=== PATIENT | female | born 1985 | race Caucasian/White ===

== ENCOUNTER 2016-11-16 23:50 | Inpatient (IN) | payer OTHER, SELFPAY ==
[~2016-11-16] VITALS: Ht 165.1 cm; Wt 66.4 kg
--- NOTE | ~2016-11-16 | DS ---
PATIENT'S NAME: THUY BERMEO [facility] AGE: 31 Y [address] ROOM: [address] [address] LOCATION: CU ADMIT DATE: 11/17/2016 Discharge Summary DISCHARGE DATE: FAMILY PHYSICIAN: Physician, Unknown ATTENDING PHYSICIAN: Jaime Fabian ADDENDUM: To discharge summary initially created by Dr. Basurto. PRINCIPAL DIAGNOSES: 1. Severe anoxic brain injury leading to brain . 2. . 3. Cardiac arrest. 4. Drug overdose. 5. History of substance abuse. BRIEF HOSPITAL COURSE: This is a 31-year-old female with a known history of substance abuse, admitted to the hospital after a cardiac arrest and undergoing resuscitative efforts with return of spontaneous circulation. The patient was admitted, intubated, and sedated. Throughout her stay, unfortunately did not have significant recovery and was found to have severe anoxic brain injury. The patient during her stay has had a clinical followup with Neurology, Critical Care team, and myself. Unfortunately, did not show a meaningful recovery or recovery potential. The patient today during my evaluation was intubated and unresponsive without any sedation. The patient subsequently had a brain exam by Dr. Ness, trust accounts supervisor, and was pronounced brain at 02:33 p.m. on 11/20/2016. The patient is a registered organ donor and [place] [facility] team is working closely with the patient's family going forward. DISCHARGE DIAGNOSIS: secondary to severe anoxic brain injury and brain . Greater than 30 minutes were spent in discharge planning and facilitating. MD ANGELIKA URIOSTEGUI/patricia /[id number] d: 11/21/16 1730 t: 12/11/16 0927, DISCHARGE SUMMARY
--- NOTE | ~2016-11-16 | CON ---
PATIENT'S NAME: THUY BERMEO [facility] AGE: 31 Y [address] ROOM: [address] [place] [id number] LOCATION: GNTU ADMIT DATE: 11/17/2016 Consultation DISCHARGE DATE: 11/23/2016 FAMILY PHYSICIAN: Physician, Unknown ATTENDING PHYSICIAN: Jaime Fabian DATE OF CONSULTATION: 11/19/2016 REFERRING PHYSICIAN: Christiano Hester MD LOCATION: ICU room [facility]. REFERRING PROVIDER: Dr. Basurto. CHIEF COMPLAINT: Palliative care referral for goals of care discussion and family support. HISTORY OF PRESENT ILLNESS: The patient is a 31-year-old female who has an extensive history of drug abuse and is a documented loperamide abuser. She was transferred to [facility] from [place] [facility] after being found unresponsive in a friend's home. It is felt that she was down 15-20 minutes before EMS arrival. On EMS arrival, the patient did briefly have a pulse but became pulseless and a CPR was initiated. She did have return of spontaneous circulation, it was lost upon arrival to the ER and CPR was initiated again. The patient is currently in the intensive care unit and is intubated and unresponsive. She is not on any current sedation and she has lost multiple reflexes. MRI of the brain on November 18 reveals suspicion for global hypoxic ischemic brain injury. Given the patient's poor prognosis, Palliative Care has been consulted to assist with goals of care and family support. At the current time, there is no family at bedside and there has not been any yet. PREVIOUS OPERATIONS: Unobtainable due to the patient's current condition and no family at bedside. PAST MEDICAL HISTORY: History of previous loperamide overdose in the last year, history of polysubstance abuse. The patient had recently been released from group home. She does have 2 children, ages 9 and 5. Other history unobtainable as the patient is unresponsive and no family at bedside. SOCIAL HISTORY: The patient is . Had recently filed for divorce. Has 2 children, ages 9 and 5. She has a history of polysubstance abuse. Recently spent some time PATIENT'S NAME: THUY BERMEO [facility] AGE: 31 Y [address] ROOM: [id number] [place], [place] [address] LOCATION: [facility] ADMIT DATE: 11/17/2016 Consultation DISCHARGE DATE: 11/23/2016 FAMILY PHYSICIAN: Physician, Unknown ATTENDING PHYSICIAN: Jaime Fabian incarcerated. FAMILY HISTORY: The patient has a mother who is alive and well in [place]. Other history is unobtainable at this time. REVIEW OF SYSTEMS: As per HPI. Unable to obtain full review of systems due to the patient's condition. PHYSICAL EXAMINATION: VITAL SIGNS: Blood pressure 170/116, heart rate 112, temperature 98.8, respirations 17, O2 sats 40% on the ventilator. GENERAL: Reveals a young adult, lying in intensive care unit intubated. She is unresponsive. Does not have sedation on board. Does not appear to be in any acute distress. HEENT: Normocephalic, atraumatic. Pupils are equal but very sluggish. ET tube is intact. Tongue, mucous membranes are moist and pink. Dentition is adequate. CARDIOVASCULAR: Heart tones regular rate and rhythm. She is tachycardic. I am not able to note a murmur. RESPIRATORY: Respirations are regular and nonlabored. Lung sounds are clear to auscultation bilaterally. I am not able to note rales, rhonchi, or wheezes. GASTROINTESTINAL: Abdomen is soft, nondistended. Bowel sounds hypoactive. GENITOURINARY: Fernandez catheter is intact with adequate amounts of yellow urine. MUSCULOSKELETAL: No significant joint deformities. Peripheral pulses strong and equal bilaterally. No clubbing or cyanosis. She does have trace bilateral lower extremity edema. SKIN: Warm and dry. No unusual lesions or rashes. NEUROLOGICAL: Unresponsive. Does not follow commands. Does not open her eyes. Her pupils are equal but sluggish. Does withdraw some in the lower extremities. IMPRESSION AND PLAN: 1. Altered mental status with hypoxic encephalopathy. 2. Respiratory failure, currently on the ventilator. 3. Code status. The patient is a full code at this time. No advanced directive on the chart. I spoke with the patient's Amrik via the phone, introduced the role of Palliative Care for support in the intensive care unit. Discussed with him this difficult situation. I reviewed with him the family situation. Provided education to him on how to prepare their 5 years old for coming to see his mom in the intensive care unit. Amrik reports that he is in [place] picking up PATIENT'S NAME: THUY BERMEO [facility] AGE: 31 Y [address] ROOM: [id number] [place], [place] [address] LOCATION: [facility] ADMIT DATE: 11/17/2016 Consultation DISCHARGE DATE: 11/23/2016 FAMILY PHYSICIAN: Physician, Unknown ATTENDING PHYSICIAN: Jaime Fabian the patient's family and plans to return to the hospital later tonight or early in the morning. He tells me "we all know where this is headed." He seems to have a fair understanding of the poor prognosis. Given the fact that he is still her , I believe that he is primary decision maker and he agrees with this but does wish to have her mother involved as well. I did place a phone call to try and update her, I did have to leave a message, and I have not heard back from her at this time. I updated nursing on my findings as well as Debbie with Neurology. We will follow for continued patient and family support and we will assist as needed in coordinating cares with staff and family. Total of 30 minutes was spent, greater than 50% of this time was spent providing education and support for the . Thank you for allowing me to assist the patient's family. DUKE COKER NP FOR MD LEONIDAS STOREY/patricia /[id number] d: 11/26/16 1823 t: 12/05/16 1414, CONSULTATION REPORT
--- NOTE | ~2016-11-16 | CON ---
PATIENT'S NAME: THUY BERMEO [facility] AGE: 31 Y [address] ROOM: [place] [address] LOCATION: GICU ADMIT DATE: 11/17/2016 Consultation DISCHARGE DATE: FAMILY PHYSICIAN: PHYSICIAN, UNKNOWN ATTENDING PHYSICIAN: MEGAN FLORES REFERRING PHYSICIAN: Christiano Hester MD REVIEW OF THE RECORD: The patient is a 31-year-old, from [place]. Apparently, she has drug abuse issues. She was transferred here after being brought to the emergency room in [place] with cardiac arrest. Her downtime apparently may have been prolonged. She is now intubated on mechanical ventilation. Her mental status is comatose. PAST MEDICAL HISTORY: Please refer to the admission history and physical exam. FAMILY HISTORY: Unobtainable. SOCIAL HISTORY: Unobtainable. REVIEW OF SYSTEMS: Unobtainable. PHYSICAL EXAMINATION: GENERAL: Unresponsive, endotracheal tube in place. ENT: Otherwise unremarkable. NECK: Normal. CHEST: Normal. LUNGS: Clear. HEART: Regular. ABDOMEN: Obese. EXTREMITIES: No clubbing or edema. ASSESSMENT: Cardiac arrest, cause unclear. PLAN: Continue to assist in ICU and Pulmonary management. NANETTE ROMERO MD PATIENT'S NAME: THUY BERMEO [facility] AGE: 31 Y [address] ROOM: [place] [address] LOCATION: GICU ADMIT DATE: 11/17/2016 Consultation DISCHARGE DATE: FAMILY PHYSICIAN: PHYSICIAN, UNKNOWN ATTENDING PHYSICIAN: MEGAN FLORES DEC/modl /[id number] d: 11/17/16 0838 t: 11/20/16 1455, CONSULTATION REPORT
--- NOTE | ~2016-11-16 | OR ---
PATIENT'S NAME: THUY BERMEO [facility] AGE: 31 Y [address] ROOM: [place] [address] LOCATION: GICU ADMIT DATE: 11/17/2016 OR/Procedure Report DISCHARGE DATE: FAMILY PHYSICIAN: PHYSICIAN, UNKNOWN ATTENDING PHYSICIAN: MEGAN FLORES SURGEON: Joey Russell MD RESEARCH INVESTIGATOR: DATE OF PROCEDURE: 11/17/2016 PROCEDURES PERFORMED: 1. Right subclavian central venous catheter. 2. Right radial arterial line. INDICATION FOR PROCEDURE: The patient is in shock, on multiple pressors with limited IV access. DESCRIPTION OF PROCEDURE: The patient was lying supine in the ICU in slight Trendelenburg position. The right chest and neck were prepped with chlorhexidine 2% x2. Sterile drape was applied over top. Maximal sterile barriers were worn at all times including sterile gloves, gown, hat, and mask. With a single stick, the introducer needle was inserted in the right chest for the subclavian approach. After the first pass, bright dark nonpulsatile blood was found on return. Wire was threaded easily and the skin nicked and dilated. A four lumen, 20 cm catheter was placed over the wire without complications and the wire removed. All ports withdrew blood and flushed easily. It was sutured into place and a sterile dressing applied on top. A chest x-ray was ordered for placement. The right arm was extended out at about 90 degrees. The radial artery was easily palpated. The right wrist and arm were prepped with chlorhexidine 2%. Maximal sterile barriers were worn. After a single stick with a 20-gauge Arrow catheter, bright red pulsatile blood was found on return and the catheter was placed easily using a Seldinger technique. Once the needle and wire were removed, it was attached to the transducer tubing and secured into place. COMPLICATIONS: None. ESTIMATED BLOOD LOSS: None. JOEY RUSSELL MD PATIENT'S NAME: THUY BERMEO [facility] AGE: 31 Y [address] ROOM: [place] [id number] LOCATION: [facility] ADMIT DATE: 11/17/2016 OR/Procedure Report DISCHARGE DATE: FAMILY PHYSICIAN: PHYSICIAN, ABBY ATTENDING PHYSICIAN: MEGAN FLORES/judyl /[id number] d: 11/17/161339 t: 11/22/16 [facility], OPERATIVE SUMMARY
--- NOTE | ~2016-11-16 | CON ---
PATIENT'S NAME: THUY BERMEO [facility] AGE: 31 Y [address] ROOM: [place] [address] LOCATION: [facility] ADMIT DATE: 11/17/2016 Consultation DISCHARGE DATE: FAMILY PHYSICIAN: PHYSICIAN, UNKNOWN ATTENDING PHYSICIAN: MEGAN FLORES DATE OF CONSULTATION: 11/17/2016 REFERRING PHYSICIAN: Aleksandr Moody MD CARDIOLOGY CONSULTATION REASON FOR CARDIOLOGY CONSULTATION: Cardiac arrest. HISTORY OF PRESENT ILLNESS: This is a 31-year-old female, with a history of drug use and documented loperamide abuse. She is transferred to [facility] from [place], [place] with cardiac arrest. She has a previous history of ventricular tachycardia in 2016. During that time, she has had a heart catheterization which showed clean coronary arteries, but an ejection fraction of 45%. The patient left that hospital stay against medical advice and was not able to be fully treated for her cardiomyopathy. Most likely, this admission is due to similar ventricular tachycardia but also of note, her loperamide levels are currently pending. At the time of this consult, she is sedated and ventilated while on the targeted temperature management protocol post cardiac arrest. PAST MEDICAL HISTORY: Unable to obtain due to patient's current status. PAST SURGICAL HISTORY: Unable to obtain due to patient's current status. FAMILY HISTORY: Unable to obtain due to patient's current status. SOCIAL HISTORY: Unable to obtain due to patient's current status. CURRENT MEDICATIONS: Please see MAR for full details. MEDICATION ALLERGIES: Unable to be assessed at this time. PATIENT'S NAME: THUY BERMEO [facility] AGE: 31 Y [address] ROOM: [address] [address] LOCATION: [facility] ADMIT DATE: 11/17/2016 Consultation DISCHARGE DATE: FAMILY PHYSICIAN: PHYSICIAN, UNKNOWN ATTENDING PHYSICIAN: MEGAN FLORES REVIEW OF SYSTEMS: Unable to be evaluated at this time due to the patient's status. PHYSICAL EXAMINATION: VITAL SIGNS: Temperature 94.6, pulse 81, respirations 14, blood pressure is 79/57, and O2 saturation 100% on 40% FiO2. The patient weighs 70.3 kg. SKIN: Cool, but pink and dry. EYES: Sclerae clear. No xanthelasmas. ENT: Oral mucosa is pink and moist. No jugular venous distention or carotid bruits. CHEST: Respirations are even and driven by the ventilator. LUNGS: Clear to auscultation. HEART: Regular rate and rhythm. Normal S1 and S2. Does have the presence of an S4. Her potline monitor shows occasional junctional rhythm. She also has prolonged QRS and QT on her EKG. ABDOMEN: Soft. MUSCULOSKELETAL: Due to patient's status unable to fully evaluate the neuromuscular strength and coordination. EXTREMITIES: Peripheral pulses palpable. No clubbing, cyanosis, or edema. PSYCHIATRIC: The patient is currently unconscious, sedated, and intubated. Of note, she is having myoclonic jerks intermittently. IMPRESSION AND PLAN: Per Dr. Moody: 1. Status post cardiac arrest. 2. Known cardiomyopathy. 3. Minimally elevated cardiac enzymes. 4. Acute hypoxic respiratory failure. 5. Documented loperamide abuse. 6. History of ventricular tachycardia. 7. Chronic systolic congestive heart failure. At this point, we will continue supportive therapy with the hypothermia protocol. Her echocardiogram is currently pending and we will monitor that to fully evaluate ejection fraction as well as look for wall-motion or valvular abnormalities. Her chest x-ray shows mild cardiomegaly. We will continue to monitor, evaluate, and treat as appropriate. Thank you for this consult. Thank you for allowing [facility] to interact in the care of this patient. DIXON NORMAN APRN FOR ALEKSANDR MOODY MD PATIENT'S NAME: THUY BERMEO [facility] AGE: 31 Y [address] ROOM: [address] [address] LOCATION: [facility] ADMIT DATE: 11/17/2016 Consultation DISCHARGE DATE: FAMILY PHYSICIAN: PHYSICIAN, UNKNOWN ATTENDING PHYSICIAN: MEGAN FLORES/patricia /[id number] d: 11/17/16 1427 t: 11/29/16 1551, CONSULTATION REPORT
--- NOTE | ~2016-11-16 | NDGEN ---
PATIENT'S NAME: THUY FLOWER [facility] AGE: 31 Y [address] ROOM: [place] [address] LOCATION: [facility] ADMIT DATE: 11/17/2016 Neurodiagnostics DISCHARGE DATE: FAMILY PHYSICIAN: PHYSICIAN, UNKNOWN ATTENDING PHYSICIAN: MEGAN FLORES PROCEDURE: ELECTROENCEPHALOGRAM DATE OF PROCEDURE: 11/19/2016 CLINICAL DIAGNOSIS: TIME: 10:05 a.m. INDICATION: Ms. Flower is a 31-year-old female who presents with a cardiac arrest after a likely toxic overdose of drugs. She is unresponsive. She had been treated for potential seizures on her presentation though at the time of the EEG, no obvious seizures were seen. There was no movement of her limbs, and the patient is again unresponsive and not on any sedative medications. DESCRIPTION: General background rhythm shows repetitive rhythmic collateralized, mostly triphasic but sometimes biphasic spike wave patterns that are regularly recurring on a time period of every 1-second interval. This rhythmic lateralized rhythm does appear to be present in both hemispheres and does not change throughout the whole EEG recording. There are no signs of interburst spike wave patterns or any seizures intermittent within this background pattern. Photic stimulation did not change the overall periodic lateralized epileptiform discharges or (PLED's). IMPRESSION: There are rhythmic biphasic and triphasic spike wave patterns that are seen on regular intervals in the bi-hemispheres consistent with periodic lateralized epileptiform discharges though this type of rhythm disturbance is nonspecific and can occur multiple etiologies, it would be consistent with the patient having a cardiac arrest with anoxia to the brain. The findings on MRI are consistent with global anoxia to the bi-hemispheres and subcortical regions of the brain as well. The patient continues to be treated for a possibility of seizures in the background, although no clinical seizures were seen presently. PLED's (periodic lateralized epileptiform discharge) pattern seen in the acute setting of presentation. In general, votes a poor prognosis based upon cortical brain injury associated with anoxia as well as the concurrent brain imaging and the patient's neurologic exam. PATIENT'S NAME: THUY FLOWER [facility] AGE: 31 Y [address] ROOM: [place] [address] LOCATION: GICU ADMIT DATE: 11/17/2016 Neurodiagnostics DISCHARGE DATE: FAMILY PHYSICIAN: PHYSICIAN, UNKNOWN ATTENDING PHYSICIAN: MEGAN FLORES MD GLORIA HUGGINS/patricia /[id number] dtt: 11/20/16 1609 , PIPER PRO dtd: 11/19/16 1730
--- NOTE | ~2016-11-16 | HP ---
PATIENT'S NAME: THUY BERMEO [facility] AGE: 31 Y [address] ROOM: [address] [address] LOCATION: [facility] ADMIT DATE: 11/17/2016 History & Physical DISCHARGE DATE: FAMILY PHYSICIAN: PHYSICIAN, UNKNOWN ATTENDING PHYSICIAN: MEGAN FLORES DATE OF SERVICE: CHIEF COMPLAINT: Cardiac arrest. HISTORY OF PRESENT ILLNESS: Unable to obtain history from the patient, however, history as obtained from the transferring physician from the emergency room at [place]. He reported that the EMS team was called by the patient's friend, and on arrival of the EMS team, the patient was found unresponsive. Friend reports that the patient likely may have been down for about 12 to 20 minutes prior to the EMS being called. On arrival of the EMS team there, she had a pulse briefly. Then, the patient became pulseless after that and CPR was started, during which time, the patient got a total of 2 epinephrine and 1 lidocaine for short episode of ventricular tachycardia, and the patient was defibrillated following the ventricular tachycardia. ROSC was obtained briefly, and thereafter, ROSC was lost. On arrival of the patient to the emergency room at [place], the patient was pulseless, was thought to be in PEA. CPR again was done for around 10 minutes, after which, pulse was obtained, and the patient at that point was started on epinephrine drip with a systolic blood pressure getting into the 120, prior to commencing the epinephrine, systolic blood pressure was in the 50s. The patient also was started on amiodarone drip, and because they did not have an manager resort coverage in the ICU, the patient was subsequently transferred to [facility] for higher level of care. Further history as obtained from the records, the patient was admitted to the same facility in April of last year, during which, she again presented with unresponsiveness, however, without cardiac arrest. Then, we thought she had presented with seizure and had loperamide overdose. She was managed with supportive care, had a Cardiology consultation, Neurology and Psych evaluation. On presentation at that time, she had a prolonged QTc, and she was put on sodium bicarb as well as magnesium and also amiodarone, which was taken care of in the ICU. Had a cardiac cath done with an ejection fraction of 45% but no significant coronary artery disease. Also as per records, it was recommended that the patient needed a LifeVest by Cardiology, but she refused, and she left AMA during that time. Reason indicated was that she was not being given her pain medication as she wanted, also was not being given Valium and Ativan as frequently as she wanted, so she left AMA. Also, nurse reports that the patient was discharged today from [facility] [place]. Reason for being in [facility] is unknown. Also on arrival to the emergency room PATIENT'S NAME: THUY BERMEO [facility] AGE: 31 Y [address] ROOM: [address] [address] LOCATION: [facility]ICU ADMIT DATE: 11/17/2016 History & Physical DISCHARGE DATE: FAMILY PHYSICIAN: PHYSICIAN, UNKNOWN ATTENDING PHYSICIAN: MEGAN FLORES at [place], the patient's temperature was also found to be 93, and they had not initiated hypothermia protocol. Subsequently, the patient was airlifted here to [facility]. En route, the patient received a total of 7.5 mg of Versed. REVIEW OF SYSTEMS: Unable to obtain as the patient is currently unresponsive. PAST MEDICAL HISTORY: As per old records includes loperamide overdose last year, history of polysubstance abuse. SOCIAL HISTORY: Unable to obtain as the patient is currently unresponsive. FAMILY HISTORY: Unable to obtain as well as the patient is currently unresponsive. SURGICAL HISTORY: Unable to obtain as well as patient is currently unresponsive. PHYSICAL EXAMINATION: VITAL SIGNS: On arrival to the ICU, temperature was 93.5, blood pressure was 95/67 on epinephrine drip, respiratory rate was 13, pulse was 90, oxygen saturation was 95% on FiO2 of 50. GENERAL: Revealed a young female with intermittent spontaneous opening of the eye and twitching of bilateral feet, which appeared to be anoxic brain injury movement, had multiple episodes. The patient was not responsive to nail pressure nor was she responsive to deep sternal rub. She was also not responsive to deep pinprick. HEENT: Pupils were equal bilaterally, sluggish about 2 mm. Ears: There is no obvious drainage or discharge. Pharynx: ET tube in place. CARDIOVASCULAR SYSTEM: Normal S1 and S2. Regular rate and rhythm. CHEST: Clear to auscultation bilaterally. ABDOMEN: Soft, nondistended. No area of tenderness. No palpable organomegaly. EXTREMITIES: There is no joint swelling or erythema or tenderness. SKIN: She has earrings over the right eyebrow. LABORATORY DATA: EKG which was done at the referral center, QTc is reported as 380. Blood work was done. The urine drug screen positive for cannabinoids and amphetamines. CPK 612, CK-MB 3.8, troponin 0.03. UA; pH 6.0, protein 3+, glucose 2+, hemoglobin 1+. ABG; pH of 7.14, pCO2 of 38, bicarb 13 on arterial, O2 PATIENT'S NAME: THUY BERMEO [facility] AGE: 31 Y [address] ROOM: [place] [address] LOCATION: [facility] ADMIT DATE: 11/17/2016 History & Physical DISCHARGE DATE: FAMILY PHYSICIAN: PHYSICIAN, UNKNOWN ATTENDING PHYSICIAN: MEGAN FLORES saturation 94% FiO2 30% ventilator. Salicylate less than 4. Acetaminophen less than 10. Magnesium 3.0. Lipase 35. Lactic acid 7.5. D-dimer 742. Sodium 135, potassium 3.5, chloride 102, bicarb 20, anion gap 16.5, creatinine 1.6, calcium 8.1, albumin 4.0. Total protein 6.8. CBC; WBC 16.8, H and H are 14.4 and 45, platelet is 252. ASSESSMENT AND PLAN: This is a 31-year-old female with history of substance abuse, who comes in with cardiac arrest. 1. Cardiac arrest, unknown etiology, present on admission. May be secondary to possibly another episode of loperamide overdose, though the patient's acute QTc on the EKG done at the referral center appears to be within a normal value. May also be due to acute arrhythmia from meth overdose and cannabis. If the CT head, which has just been done, does not show any signs of anoxic brain injury, we may likely start the patient on some sodium bicarb drip. I did discuss with Dr. Hester, who is firefighter marine on-call, and he thinks that there is no indication for urgent cardiac cath right now given patient's history of substance abuse with loperamide, and also, the patient has just had a left cardiac cath done last year with normal coronaries. The patient's temperature right now is 93.5. We will initiate the hypothermia protocol to maintain the patient's temperature for 24 hours at this level, and we will follow up on the results of the CT head. We will continue the patient on the amiodarone drip, and we will wean the patient off the epinephrine and start the patient on Levophed to keep MAP greater than 65. 2. Acute hypoxic respiratory failure, present on admission, secondary to cardiac arrest. The patient is on ventilator. Management is going to be per Dr. Avendano. 3. Acute kidney injury, present on admission secondary to cardiac arrest, prerenal. We will hydrate the patient with normal saline. 4. Seizure-like activity, present on admission. This may be secondary to anoxic brain injury. We have had a CT head done. We will follow up on the results. We will also get a Neurology consult in the morning. We will load the patient with Dilantin right now and continue thereafter on a maintenance dose. 5. Polysubstance abuse, present on admission. We will likely start the patient on sodium bicarb drip if there are no signs of brain swelling or anoxic brain injury. 6. Systolic heart failure. We will get an echocardiogram to evaluate the ejection fraction currently. This was the EF on the cardiac cath, which was done last year. Prognosis is pretty poor. Critical care time spent on this patient is approximately 70 minutes. PATIENT'S NAME: THUY BERMEO [facility] AGE: 31 Y [address] ROOM: [place] [address] LOCATION: [facility] ADMIT DATE: 11/17/2016 History & Physical DISCHARGE DATE: FAMILY PHYSICIAN: PHYSICIAN, UNKNOWN ATTENDING PHYSICIAN: MEGAN FLORES MD LETICIA NICE/patricia /[id number] D: [id number] T: [id number] HISTORY & PHYSICAL
--- NOTE | ~2016-11-16 | DS ---
PATIENT'S NAME: THUY BERMEO [facility] AGE: 31 Y [address] ROOM: [address] [address] LOCATION: [facility] ADMIT DATE: 11/17/2016 Discharge Summary DISCHARGE DATE: FAMILY PHYSICIAN: Physician, Unknown ATTENDING PHYSICIAN: Jaime Fabian INTERIM DISCHARGE SUMMARY This is a interim discharge summary given that I will not be here next week because we changed shift; therefore, this summary will be an interim discharge summary and any updates or any changes on the actual day of discharge, as well as the discharge medication will be dictated by the actual hospitalist working on the actual day of discharge. DATE OF DISCHARGE: To be determined. DISCHARGE DIAGNOSES: 1. Cardiac arrest secondary to methamphetamine, cannabinoid, and benzodiazepine use/abuse and possibly also from loperamide overdose (currently the loperamide serum level is pending). 2. Shock secondary to cardiac arrest from pulseless ventricular tachycardia followed by PEA secondary to cardiac arrest. 3. QRS and QTc prolongation in the setting of polysubstance abuse/use. 4. Troponin elevation secondary to a recent CPR during cardiac arrest. Not ACS. 5. D-dimer elevation in the setting of cardiac arrest (CT pulmonary angiogram not yet performed given that she had acute kidney injury on admission and at this point, the patient has a poor prognosis. CTPA could be considered, but it will not really change her clinical course). A V/Q scan was not performed on admission given that the patient was very hemodynamically unstable (requiring 2 pressors). 6. Acute kidney injury secondary to cardiac arrest and shock. 7. Transaminitis secondary to shock liver from shock from cardiac arrest. 8. Seizure-like activity secondary to anoxic brain injury, status post prolonged cardiac arrest. 9. Hypokalemia, hypocalcemia, and hypomagnesemia. PAST MEDICAL HISTORY: 1. Polysubstance abuse including methamphetamine, cannabinoid, and benzodiazepine. 2. Prior intentional overdose of loperamide, where she was unresponsive, but at that time, she did not suffer cardiac arrest. FOLLOWUP PLAN: I will place a Palliative Care consult for tomorrow, November 19, 2016. I have spoken to each family member including her mother in [place] PATIENT'S NAME: THUY BERMEO [facility] AGE: 31 Y [address] ROOM: [facility] [place], [place] [address] LOCATION: [facility] ADMIT DATE: 11/17/2016 Discharge Summary DISCHARGE DATE: FAMILY PHYSICIAN: Physician, Unknown ATTENDING PHYSICIAN: Jaime Fabian who would not be coming here given that she cannot afford the airline ticket. I also spoke in person to her friend, who is a close friend, his name is Mumtaz. I also spoke to her who is the power of claim attorney, Wilder. I have also spoken to our neurologist, Dr. Amezcua. The followup plan right now is she is still full code and has a Palliative Care consult tomorrow to talk to the family about goals of care and considering changing her to DNR/DNI and possibly comfort measure only, withdrawal of all care depending on her clinical course, in the discussion between Palliative Care and the power of claim attorney who is her . Her prognosis is guarded and poor given that the MRI of the brain on November 18, 2016, show findings suspicious of a global hypoxic ischemic brain injury, possibly a profound injury with early cerebral edema and a small volume of subarachnoid hemorrhage. The patient is already off all the sedative medications and the patient is not waking up. The patient already completed a full course of hypothermia and the rewarming protocol and she is still not waking up. She still has this on and off twitching of her bilateral lower extremities and both of her eyes. The prognosis is poor at the moment. The patient remains a full code and further code status change will be addressed by the next hospital working next week and also with the family member, in this case, her who is a power of claim attorney and also have the palliative care consulted on November 19, 2016. Her family members are very realistic and they know that she has a poor prognosis and recovery at this point is less likely. However, they want to give the patient a few more days to see if she will make a comeback in the recovery, if not, please continue to follow up with the family member regarding future goals of care and change of code status. A organ donor has been consulted and per organ donor, please do not talk to any family member about organ donation because this we will leave up to the organ donor staff to discuss. Because she has not yet declared brain , there is no necessity to bring up the organ donation subject to the patient's family member. Leave the organ donation subject to the organ donor staff. INVESTIGATIONS DURING THE HOSPITALIZATION: 1. CT of the brain without contrast on November 17, 2016, show normal head CT. Chest x-ray on November 17, 2016, showed intubation and central and basilar atelectasis. 2. Chest x-ray on November 17, 2016, show placement of the right subclavian catheter without evidence of complication. 3. MRI of the brain without contrast on November 18, 2016, show findings suspicious of a global hypoxic ischemic brain injury and possibly a profound injury with early cerebral edema and a small volume subarachnoid hemorrhage. There is rather extensive and bilateral and symmetric diffusion restriction with diminished ADC signal involving the bilateral caudate and lentiform nuclei, hippocampi, hemispherical cortex, and cerebellar cortex, suspicious of a sequela of a global hypoxic ischemic injury with early cerebral edema. There is a small volume linear PATIENT'S NAME: THUY BERMEO [facility] AGE: 31 Y [address] ROOM: [place] [address] LOCATION: [facility] ADMIT DATE: 11/17/2016 Discharge Summary DISCHARGE DATE: FAMILY PHYSICIAN: Physician, Unknown ATTENDING PHYSICIAN: Jaime Fabian subarachnoid flair signal in the posterior parietal lobes, which may reflect small subarachnoid hemorrhage. The ventricles are small. There is no midline shift or herniation. Expected vascular flow voids are present. The optic nerve sheaths are swollen. This may reflect increased intracranial pressure. 4. Transthoracic echo on November 17, 2016, showed low normal left ventricular contractility with an estimated EF of 45% to 50% and the left ventricle is normal in size. Diastolic assessment appears to be normal. LABORATORY DATA: PH on November 18, 2016, showed pH 7.4, pCO2 41, PO2 111, bicarbonate 25.4, FiO2 40%, 98% O2 saturation, lactic acid 5.7 on admission, 1.6 on my dictation. Troponin initially with 0.06, followed by 0.05, followed by less than 0.04, 3 sets. ProBNP 210, followed by 385. CPK 859, followed by 660, then 520, then 430, then 335. CBC on admission, white blood cells 19.3, hemoglobin 13.9, hematocrit 42.3, MCV 91.2, platelets 282. On the day of my dictation, white blood cells 12.7, hemoglobin 11, hematocrit 31.9, MCV 89.1, platelets 174. Chemistry on admission, glucose 269. BUN 14, creatinine 1.4. Sodium 141, potassium 3.0, chloride 105, CO2 20, calcium 6.2. On the day of my dictation, Glucose 110, BUN 7, creatinine 0.8. Sodium 145, potassium 4.1, chloride 113, CO2 27, calcium 7.3. Liver function testing: Total protein 6.6 on admission, albumin 3.5, AST is 581, ALT is 471, alkaline phosphatase is 449, total bilirubin is 0.2, phosphorus 4.7. On the day of my dictation, total protein 4.9, albumin 2.6, AST 133, ALT 220, alkaline phosphatase 40, total bilirubin is 0.3, phosphorus 2.0. GFR on admission is 44 and on the day of my dictation, more than 60. Magnesium on admission 1.6 and on the day of my dictation, 1.8. INR 1.0 since admission and on the day of my dictation, it was 1.0. Urinalysis negative for UTI. Urine drug screen positive for amphetamine, positive for cannabinoid, and also positive for benzodiazepine. Procalcitonin on the day of my dictation, 0.8. Alcohol level not toxic. Tylenol and aspirin level also not toxic. CK-MB 3.9, followed by 4.7, then 4.2, then 3.4, then 2.4. D-dimer is 16.31 on admission. Microbiology study show blood culture 2 sets were obtained on November 17, 2016, both came back negative so far, preliminary report. Sputum culture Gram stain showed normal rachel. Urine culture showed no growth so far preliminary. Repeat blood culture one set on November 18, 2016, currently is still pending. CONSULTANTS INVOLVED IN THE CARE: 1. Neurology Dr. Amezcua. 2. ICU insurance executive, Dr. Avendano. 3. Hospitalist team. 4. Cardiology, Dr. Hester. PATIENT'S NAME: THUY BERMEO [facility] AGE: 31 Y [address] ROOM: [place] [address] LOCATION: [facility] ADMIT DATE: 11/17/2016 Discharge Summary DISCHARGE DATE: FAMILY PHYSICIAN: Physician, Unknown ATTENDING PHYSICIAN: Jaime Fabian ADMISSION HISTORY AND HOSPITAL COURSE: For a complete history and physical, refer to history and physical dictated on the day of admission. In summary, this is a 31-year-old, female with past medical history as mentioned above who was found to be unresponsive at home by her friend, but her friend did not call the ambulance until 20 minutes after. When the EMS arrived, she was found to be in cardiac arrest. Therefore, CPR was started and the patient was found to be in pulseless ventricular tachycardia requiring defibrillation as well as multiple rounds of CPR and epinephrine and lidocaine. I am not sure why amiodarone was not given instead of lidocaine and eventually had return of spontaneous circulation and patient was transferred from home to the ER in [place]. In [place], on arrival, the patient went into cardiac arrest again. At that time, she was in pulseless electrical activity. CPR and epinephrine were given and multiple rounds of epinephrine and CPR were given, it lasted about roughly 10 minutes. Again, the patient had a return of spontaneous circulation. The patient was already intubated during the first cardiac arrest. The patient was then started on amiodarone drip after given a bolus. The patient's heart remained in sinus rhythm. The patient was later transferred here for higher level of care. The patient was admitted for the diagnoses mentioned above in the discharge diagnoses. 1. Regarding her cardiac arrest secondary to methamphetamine, cannabinoid, and benzodiazepine use/abuse, as well as from pulseless ventricular tachycardia and pulseless electrical activity, also in the setting of possible loperamide overdose associated with shock secondary to cardiac arrest dependent on vasopressor: On arrival, the patient's blood pressure was very low and the MAP was also very low requiring Levophed drip to keep the MAP above 65. When the patient came here, the patient was in sinus rhythm. The patient was started on the cooling protocol. Cardiology was consulted and given that the patient was in sinus rhythm on arrival, there was no necessity to continue with the amiodarone drip. The patient initially had an elevation of troponin, this is from the chest compression and the cardiac arrest. The patient had a recent cardiac catheterization from the outside facility when she was overdosed on loperamide. At that time, she did not have a cardiac arrest, but the cardiac cath was still performed and was clean. The patient's troponin was cycled and already peaked and already normalized. Echo also did not show any motion abnormality. EF was 45% to 50%. Therefore, ACS was less likely. Cardiac cath was not performed on this admission because it was not necessary. The goal is to keep her potassium more than 4 and magnesium more than 2. Given that on admission here, several EKG were performed, and the one EKG showed QTc prolongation with a QTc of 230 milliseconds and the QRS also prolonged at 154 milliseconds. This is concerning for torsades de pointes development. Therefore, the patient's potassium and also magnesium were replaced to keep the potassium more than 4 and magnesium more than 2. Due to our ICU protocol for PATIENT'S NAME: THUY BERMEO [facility] AGE: 31 Y [address] ROOM: [address] [place], [place] [address] LOCATION: [facility] ADMIT DATE: 11/17/2016 Discharge Summary DISCHARGE DATE: FAMILY PHYSICIAN: Physician, Unknown ATTENDING PHYSICIAN: Jaime Fabian hypothermia protocol, this prevents us from replacing the potassium and magnesium the way we wanted. Initially, supercharge repair supervisor Dr. Hester and hospitalist team wanted to replace the magnesium and potassium to keep the magnesium more than 2, potassium more than 4 to prevent torsades cleopatra pointes since her QTC was prolonged. However, ICU protocol prevents our orders to go through. Fortunately, the patient remained in sinus rhythm without any further QTc prolongation. Her potassium remained hypokalemic at all times throughout the hypothermia protocol due to hypothermia protocol that prevents us to replace K to normal and above 4. Fortunately, patient did not go into another pulseless ventricular tachycardia during her prolonged hypokalemic state. The patient was started on sodium bicarbonate drip for the QRS prolongation and repeat EKGs fortunately showed resolution of QTc prolongation. QRS prolongation also resolved with bicarbonate drip. EKG did not show any acute ischemic changes to suggest ACS. The patient remained sinus rhythm with occasional PVC and sometimes with junctional rhythm, but never went back to V-Tach or other forms of arrhythmia. The patient was already taken off all the sedating medications; however, the patient is still not waking up. Since admission and during the hypothermia protocol, the patient was exhibiting intermittent twitching of her feet and also both eyes. Neurology was following closely and then an MRI of the brain was performed on November 18, 2016, and showed finding of a suspicion of global hypoxic ischemic brain injury, which could be a profound injury with early cerebral edema and a small volume subarachnoid hemorrhage. Because of this finding, family members were updated again. I personally spoke to the patient's mother in [place] over the phone who will not be coming here because she could not afford airline ticket. The patient's mother told me that the patient has a long history and many years of drug abuse problem and has been to several rehab programs, but she kept relapsing. When the patient was living with her mother, the patient would steal her mother's money to go out to buy drugs and would also steal her prescription medications including her opioids. The patient's mother is very realistic about her condition and for now, she will be full code unless her condition keeps deteriorating. Later on, DNR/DNI could be addressed and eventually comfort measure only and withdrawal of all care could also be addressed, but for now, we will keep treating her, give her a few more days to see if she responds. I have also spoken in person to the patient's , Wilder, who is the power of claim attorney as well as the patient's close friend, Mumtaz, and they are all in agreement with the decision made by the patient's mother. Continue with full code for now, but they all know that she has a very poor prognosis and recovery at this moment, probably is very slim. The plan now will be continue the current treatment, treat her as a full code and have a Palliative Care consult placed for tomorrow, November 19, 2016, and if her condition keeps deteriorating, then we can readdress the code status to DNR/DNI and eventually to withdrawal of care and comfort measure only if the family members are ready for that in the near future. Please also continue to follow up with Cardiology and Neurology on a daily basis. PATIENT'S NAME: THUY BERMEO [facility] AGE: 31 Y [address] ROOM: [id number] [place], [place] [address] LOCATION: [facility] ADMIT DATE: 11/17/2016 Discharge Summary DISCHARGE DATE: FAMILY PHYSICIAN: Physician, Unknown ATTENDING PHYSICIAN: Jaime Fabian 2. Regarding her shock secondary to cardiac arrest: She is still on the Levophed drip. At one point, she required 2 pressors including Krystian- Synephrine and Levophed drip. She has started the Levophed drip. Wean off as tolerated. 3. Regarding her QTc and her QRS prolongation: Already resolved. Keep the magnesium more than 2 and potassium more than 4 to prevent any further arrhythmia from developing. Sodium bicarbonate has already been stopped given that the QRS already normalized. EKG again in the morning to monitor her QTc and QRS duration. 4. Troponin elevation: Already peaked. This is not ACS, this is from the recent chest compression from her cardiac arrest. Echo did not show any motion abnormality. Did not require cardiac cath per Cardiology because this is not ACS. 5. Acute kidney injury secondary to shock from cardiac arrest: Already resolved after IV fluid hydration and the bolus. 6. Shock liver secondary to shock from the cardiac arrest: Improving with IV fluids. Keep checking her liver function testing tomorrow morning to monitor. 7. Possible aspiration pneumonia: Given that the patient was down for 20 minutes and the patient's procalcitonin is elevated, currently intubated for unresponsiveness and airway protection, she will be getting IV Zosyn empirically to cover her for questionable and possible aspiration pneumonia given the patient is still requiring vasopressor and still has leukocytosis. Her D-dimer is also high, but at this point, the patient has a very poor prognosis and CT pulmonary angiogram could be considered to rule out pulmonary embolism. However, the patient is already off all the sedating medication and is still not waking up and there is still this constant and intermittent twitching of the bilateral feet and both eyes and MRI of the brain today shows cerebral edema and anoxic brain injury and a small subarachnoid hemorrhage. Therefore, CT pulmonary angiogram even if showed pulmonary embolism putting her on heparin drip in the setting of subarachnoid hemorrhage is less likely going to change her outcome or her prognosis. 8. Deep vein thrombosis prophylaxis: The patient is high risk of getting deep vein thrombosis given that the patient is bed bound. However, in the setting of a small subarachnoid hemorrhage, we will go ahead and stop the subcu Lovenox and just do the compression devices for now. This is in agreement with the patient's family members. 9. Her prognosis is poor and guarded and family members are aware and Dr. Maverick Amezcua has also explained the condition in person with the patient's and the patient's close friend. I have already updated the patient's mother over the phone and also spoke to the patient's close friend, and also the patient's . They are all in agreement with the current plan and the plan right now will be get a Palliative Care consult tomorrow and keep treating her as a full code. If her condition PATIENT'S NAME: THUY BERMEO [facility] AGE: 31 Y [address] ROOM: [place] [address] LOCATION: [facility] ADMIT DATE: 11/17/2016 Discharge Summary DISCHARGE DATE: FAMILY PHYSICIAN: Physician, Unknown ATTENDING PHYSICIAN: Jaime Fabian keeps deteriorating or lack of improvement in the next few days, then the code status should be changed to DNR/DNI and eventually can discuss about the comfort measure only after withdrawing all care including extubation. This will take place in the near future if her condition does not improve or gets worse. Time spent on the day of the patient's care and also my dictation is 50 minutes including family updates and also touching base with Dr. Maverick Amezcua regarding the plan of care. All questions and concerns were answered to the patient's family members to their satisfaction. MD ETELVINA POLK/patricia /[id number] d: 11/19/16 0049 t: 12/05/16 2214, DISCHARGE SUMMARY
--- NOTE | ~2016-11-16 | OR ---
PATIENT'S NAME: THUY BERMEO [facility] AGE: 31 Y [address] ROOM: [place] [address] LOCATION: GICU ADMIT DATE: 11/17/2016 OR/Procedure Report DISCHARGE DATE: FAMILY PHYSICIAN: PHYSICIAN, UNKNOWN ATTENDING PHYSICIAN: MEGAN FLORES SURGEON: Domingo Ness MD DATE OF PROCEDURE: 11/20/2016 PROCEDURE PREPARER: Jodie Mcginnis, Respiratory therapist. PROCEDURE NAME: Bronchoscopy with bronchial wash of the left lower lobe. INDICATIONS: To assess lung suitability for possible donation in a patient with brain , status post cardiac arrest. CONSENT: The procedure was covered by the [facility] Protocol. The patient was declared brain earlier today, and I was asked to perform this procedure to assess the lungs' suitability for possible donation. PROCEDURE DESCRIPTION AND FINDINGS: The patient was intubated in the Intensive Care Unit, and connected to continuous monitoring devices. The bronchoscope was advanced through the endotracheal tube, and the airways were examined. The endotracheal tube was at 3 cm above the tariq in stable position. There were patchy and diffuse areas of erythema in both mainstem bronchi and in the right lower and left lower lobes at the takeoff of the bronchi. There was no clear evidence of blood clots or active bleeding. The tariq was sharp. There was no evidence of any tumors or any other lesion. I was able to perform an assessment down to the subsegmental level in both lungs. At the end of the procedure, I performed a bronchial wash in the posterior segment of the left lower lobe. There was evidence of a small amount of light yellow thick secretions. 20 mL of sterile saline were instilled with return of 20 mL of cloudy material. At the end of the procedure, the bronchoscope was withdrawn. The patient was returned to the ICU Intensive Care Unit team for further management. PATIENT'S NAME: THUY BERMEO [facility] AGE: 31 Y [address] ROOM: [place] [address] LOCATION: [facility]ICU ADMIT DATE: 11/17/2016 OR/Procedure Report DISCHARGE DATE: FAMILY PHYSICIAN: PHYSICIAN, UNKNOWN ATTENDING PHYSICIAN: MEGAN FLORES COMPLICATIONS: None. ESTIMATED BLOOD LOSS: None. SPECIMENS: The bronchial wash will be sent for Microbiology studies as requested by the [facility] team. MD JANET STOREY/patricia /[id number] d: 11/20/16 2313 t: 11/21/16 1202, OPERATIVE SUMMARY
--- NOTE | ~2016-11-16 | ECHO ---
Transthoracic Echocardiography Report (TTE) Demographics Patient Name THUY BERMEO Date of Study 11/17/2016 Patient Number [id number] Visit Number [id number] Date of 1985 Room Number G6201 Accession Number [id number] Gender Female Age 31 year(s) Referring Gyroscopic Instrument Tester Tian Guzman RVT, Physician DEMIAN Physician Interpreting Kacie Yang Safety Equipment Tester Physician A Supervising Ordering Physician Caren Colon MD/LALOP MD Nurse Stress Business Process Associate Conclusions Contractility Score Summary Low normal Left Ventricular contractility was noted. Summary The estimated left ventricular ejection fraction is 45-50%. The left ventricle is normal in size . Diastolic assessment appears normal relaxation. Procedure Type of Study TTE procedure:2D Echocardiogram. Procedure Date Date: 11/17/2016 Start: 01:32 PM Study Location: Inpatient Portable Technical Quality: Adequate visualization Indications:Cardiac Arrest. Appropriate Use Criteria: 8 Patient Status: Routine Rhythm: NSR HR: 81 bpm BP: 84/59 mmHg M-Mode/2D Measurements LV Diastolic Dimension: 4.48 cm LV Systolic Dimension: 3.08 cm LV Septum Diastolic: 1 cm LV PW Diastolic: 0.96 cm AO Root Dimension: 2.1 cm Cardiac Output: 2.47 l/min AV Cusp Separation: 1.8 cm RV Diastolic Dimension: 2.53 cm LA volume: 22 ml LVOT: 1.8 cm RV Base: 2.54 cm LVOT VTI: 12 cm RV Mid: 2.28 cm LV Stroke volume: 30.52 ml TAPSE: 1.73 cm TDI-S': 9.87 cm/s Doppler Measurements AV Peak Velocity: 1.11 m/s MV Peak E-Wave: 0.77 m/s AV Peak Gradient: 4.93 mmHg MV Peak A-Wave: 0.26 m/s AV Mean Gradient: 3 mmHg MV E/A Ratio: 2.92 LVOT Peak Velocity: 0.65 m/s MV P1/2t: 78 msec TR Gradient:25 mmHg PV Peak Velocity: 0.72 m/s Estimated RAP:5 mmHg PV Peak Gradient: 2.08 mmHg Estimated RVSP: 30 mmHg Estimated PASP: 30 mmHg E' Septal Velocity: 0.12 m/s A' Septal Velocity: 0.07 m/s E' Lateral Velocity: 0.1 m/s A' Lateral Velocity: 0.04 m/s Findings Left Ventricle The left ventricle is normal in size . Diastolic assessment appears normal relaxation. Right Ventricle Normal right ventricle structure and function. Left Atrium Normal left atrial size. There is no evidence of patent foramen ovale or atrial septal defect by color Doppler. Right Atrium Normal right atrial size. Dilated IVC measuring 2.31 cm. Patient intubated. Mitral Valve Normal mitral valve structure and function. Trivial mitral regurgitation by color Doppler. Aortic Valve Normal aortic valve structure and function. Tricuspid Valve Normal tricuspid valve structure and function. Trivial tricuspid regurgitation by color Doppler. Pulmonic Valve Normal pulmonic valve structure and function. Pericardial Effusion No evidence of pericardial effusion. Miscellaneous Visualized portions of the aortic root and ascending aorta appear normal in size. Pleural Effusion No evidence of pleural effusion. Contractility Score LV regional wall motion:(0-Non visualized 1-Normal 2-Hypokinesis 3-Akinesis 4-Dyskinesis 5-Aneurysm) Signature dtt: Christiano Hester dtd: 11/17/16 7888 Physician Self Edit
--- NOTE | ~2016-11-16 | CON ---
PATIENT'S NAME: THUY FLOWER [facility] AGE: 31 Y [address] ROOM: [address] [address] LOCATION: GICU ADMIT DATE: 11/17/2016 Consultation DISCHARGE DATE: FAMILY PHYSICIAN: PHYSICIAN, UNKNOWN ATTENDING PHYSICIAN: MEGAN FLORES DATE OF CONSULTATION: 11/17/2016 REFERRING PHYSICIAN: Christiano Hester MD The patient was seen in neurologic consultation on 11/17/2016 at 12 noon. HISTORY OF PRESENT ILLNESS: I was asked to see Ms Flower who is a 31-year-old female patient whom we have no significant medical history. The information that we have, was obtained from the transferring physician in [place]. He reported that the patient would possibly have been recently incarcerated for an unknown time, had been home and was found unresponsive by a friend of the patient, possible that the patient had been unresponsive for many minutes before EMS was came to the scene where the patient was found to be pulseless and received CPR. It was also reported that she had ventricular tachycardia with fibrillation and required shocking. Her heart back to a normal rhythm; however, the history here is somewhat speculative as it was mentioned elsewhere that she was pulseless and had pulseless electrical activity there after and quite CPR again or at least 10 minutes. The patient was transferred to our hospital for high level of care. Urine toxicology was positive for methamphetamines and THC, but no evidence of opiates or other toxicology was found. There was a question as to whether the patient illicitly was using [id number]-xtelabt products in excess such as loperamide, has known to be used as either for recreation or for persons with opiate withdrawal. However, we do not know much of a history of opiate use or whether the patient actually had abused this medication as just mentioned. The EKG does reveal prolonged QTc possibly suggestive of as to why she went into a ventricular tachycardic event and possibly ventricular fibrillation. 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 Here in our ICU, the patient was noted to have intermittent jerking motions of her lower extremities that appeared not to be typical of myoclonic jerking as they appeared to be symmetric in viewing her eyes, her eyes had tendency to jerk backwards and jerk upwards on occasion as it is noted typically to be in a generalized seizure. However, she was loaded on antiepileptic medication already at this point in time of my seeing the patient, which did include phenytoin load and to continue at 100 mg IV q.8 hours. Furthermore she was on a standing IV drip of Versed which should normally stop active seizures; however, it appears as though she does have occasional clonic movements of her lower extremities. Levetiracetam was also loaded as 1 g and will be continued at 500 mg twice a day. Possibly need for the Versed a drip due to potential PATIENT'S NAME: THUY FLOWER [facility] AGE: 31 Y [address] ROOM: [place] [address] LOCATION: [facility] ADMIT DATE: 11/17/2016 Consultation DISCHARGE DATE: FAMILY PHYSICIAN: PHYSICIAN, UNKNOWN ATTENDING PHYSICIAN: MEGAN FLORES ongoing seizure activity and for purposes of being intubated, the patient continues on Versed drip though because of the conjunction with hypotension currently with blood pressure is holding in the 85 mmHg systolic. She is currently receiving a bolus of normal saline 500 mL presently and consideration for starting cardiac pressors has been in the works as well. The patient did have a CAT scan of the brain which was performed already, which did not show any evidence of any acute stroke or swelling of the brain, in fact it was read as normal. PRIOR MEDICAL HISTORY: Unknown prior medical history. SOCIAL HISTORY: Obtainable. SURGICAL HISTORY: Obtainable. FAMILY HISTORY: Obtainable. PHYSICAL EXAMINATION: The patient is intubated on mechanical ventilation. She displays no voluntary movement of her limbs in response to pain. There is on occasion some jerks of her lower extremities that do seem to be bilateral. Differential here would be myoclonic jerking, though the nature of symmetry of the jerking of the feet do not point to myoclonus presently. PHYSICAL EXAMINATION: VITAL SIGNS: Revealed pulse of 92, respiration 16, blood pressure variable 85 to 95 systolic, temperature afebrile, FiO2 30%, 95% on pulse oxygenation. GENERAL: This is a fairly healthy, well kempt individual, does not have any obvious skin excoriations or rashes. She is well groomed. NEUROLOGIC: I noticed twitches of the bilateral feet which that may correlate with occasional twitching of the bilateral eyes and spontaneous jerking back of the eyes consistent either with persistence of seizure activity versus myoclonic activity with myoclonus not typically this symmetric. Pupils are equal, reactive, but sluggish only a 2 mm. There is no gag reflex currently. The reactive startle response to opening up her eyes and coronal reflexes are not present. No spontaneous movement of the upper limbs involuntary manner and withdrawal to pain is not present. Reflexes are dull at +1 in the biceps, triceps, and the patellar reflexes are dull at 0-1. Ankle jerk reflexes and plantar reflexes are neutral. IMPRESSION: PATIENT'S NAME: THUY FLOWER [facility] AGE: 31 Y [address] ROOM: [place] [address] LOCATION: [facility] ADMIT DATE: 11/17/2016 Consultation DISCHARGE DATE: FAMILY PHYSICIAN: PHYSICIAN, UNKNOWN ATTENDING PHYSICIAN: MEGAN FLORES Unfortunately, this is a young 31-year-old female patient who does likely have a substance abuse history, though did not have opiates positive on urinary toxicology according to the hospitalist, there is some thought that she had possibly used an cldi-lyt-gsjcxfw substance of loperamide for illicit use, used in persons with opiate withdrawal or for recreation use in high doses of multiple pills was thought to be cardiotoxic. This may explain the patient having sudden cardiac arrest and possibly even medications' side-effect prolonging QTc. From the presentation here even after a hypothermic protocol, the patient does not show any spontaneous movement of the limbs in the voluntary manner. We will continue to aggressively treat the possibility of underlying seizures as she is receiving to antiepileptic medications as well as hourly Versed drip. From the history, it is suggested that the patient did have at least 15-20 minutes perhaps even more time of unresponsiveness. It is unknown if the patient ever had a seizure history. It is probably unlikely that this presentation did present as a seizure and then postictal phase as it did seem to be more of an issue associated with hypoxia with cardiac arrest, it would be highly unlikely in this patient who just would have a generalized seizure. From the standpoint of the patient not responding presently as well as having spontaneous limb jerking in the setting of two generalized seizure medications as well as generalized anti-seizure, this is suggestive of possibly anoxic brain injury. We will do an MRI in the morning. Giving this some time to see if we could find any evidence for this with change in the tovar-white matter junction or swelling of the brain. We are currently trying to get in touch with the patient's parents who do reside in [place] and will update them on this unfortunate situation and keep them fully versed. MD GLORIA HUGGINS/modl /[id number] d: 11/17/16 1828 t: 11/20/16 1604, CONSULTATION REPORT
[2016-11-17 02:11] LABS: BASOPHIL % 0.2 %; EOSINOPHIL % 0.1 %; HEMATOCRIT 42.3 % (33.0-46.0); HEMOGLOBIN 13.9 g/dL (11.0-15.0); IMMATURE GRANULOCYTE # 0.3 K/uL (0.0-0.3); IMMATURE GRANULOCYTE % 1.4 %; LYMPHOCYTE # 1.8 K/uL (0.8-4.0); LYMPHOCYTE % 9.5 %; MCHC 32.9 gm/dL (32.0-36.5); MCV 91.2 fl (83.0-98.0); MPV 8.8 fl (9.4-12.4); NEUTROPHIL # (ANC) 16.2 K/uL (1.8-7.8); NEUTROPHIL % 83.8 %; NRBC % 0 /100WBC (0-0.00); PLATELET COUNT 282 K/uL (150-450); RBC 4.64 M/uL (3.50-5.50); RDW-CV 13.2 % (11.9-14.6)
[2016-11-17 02:12] LABS: WBC 19.3 K/uL (4.0-11.0)
[2016-11-17 02:13] LABS: LACTATE 5.7 mEq/L (0.50-1.60)
[2016-11-17 02:45] LABS: PROTIME 10.8 SECONDS (9.6-11.1); PTT 25 SECONDS (25-32)
[2016-11-17 02:46] LABS: ALBUMIN 3.5 gm/dL (3.5-5.0); CREATININE 1.4 mg/dL (0.5-1.1); MAGNESIUM 1.6 mg/dL (1.3-2.6); PHOSPHORUS 4.7 mg/dL (2.5-4.9); TOTAL BILIRUBIN 0.2 mg/dL (0.0-1.5); TOTAL PROTEIN 6.6 g/dL (6.0-8.4)
[2016-11-17 02:48] LABS: CALCIUM 6.2 mg/dL (8.5-10.5)
[2016-11-17 04:50] LABS: BICARBONATE 23.1 mmol/L (18.0-23.0); PCO2 47 mmHg (35-45); PO2 80 mmHg (80-90)
[2016-11-17 04:51] LABS: LACTATE 2.1 mEq/L (0.50-1.60)
[2016-11-17 08:51] LABS: PROTIME 10.7 SECONDS (9.6-11.1)
[2016-11-17 08:58] LABS: ANION GAP 11.5 (10.0-19.0); CREATININE 1.2 mg/dL (0.5-1.1); MAGNESIUM 2.3 mg/dL (1.3-2.6); PHOSPHORUS 3.4 mg/dL (2.5-4.9); POTASSIUM 3.5 mMol/L (3.7-5.1)
[2016-11-17 14:21] LABS: BILIRUBIN URINE NEGATIVE (NEGATIVE); BLOOD URINE NEGATIVE /UL (NEGATIVE); COLOR URINE YELLOW (YELLOW); GLUCOSE URINE NEGATIVE (NEGATIVE); KETONE URINE NEGATIVE (NEGATIVE); LEUKOCYTES URINE NEGATIVE /UL (NEGATIVE); NITRITE URINE NEGATIVE (NEGATIVE); PROTEIN URINE NEGATIVE (NEGATIVE); TURBIDITY URINE CLEAR (CLEAR); UROBILINOGEN URINE NORMAL (NORMAL)
[2016-11-17 14:38] LABS: AMPHETAMINE POSITIVE (NEGATIVE); BARBITURATE NEGATIVE (NEGATIVE); COCAINE NEGATIVE (NEGATIVE); OPIATES NEGATIVE (NEGATIVE)
[2016-11-17 14:58] LABS: PROTIME 10.6 SECONDS (9.6-11.1)
[2016-11-17 15:08] LABS: ANION GAP 12.4 (10.0-19.0); CREATININE 1.1 mg/dL (0.5-1.1); MAGNESIUM 1.9 mg/dL (1.3-2.6); PHOSPHORUS 2.2 mg/dL (2.5-4.9); POTASSIUM 3.4 mMol/L (3.7-5.1)
[2016-11-17 15:11] LABS: CALCIUM 6.4 mg/dL (8.5-10.5)
[2016-11-17 20:36] LABS: PROTIME 10.7 SECONDS (9.6-11.1)
[2016-11-17 20:49] LABS: ANION GAP 11.4 (10.0-19.0); BLOOD UREA NITROGEN 13 mg/dL (6-24); CHLORIDE 110 mMol/L (96-110); CO2 24 mMol/L (22-32); ESTIMATED GFR (MDRD EQUATION) > 60; MAGNESIUM 2.2 mg/dL (1.3-2.6); PHOSPHORUS 2.8 mg/dL (2.5-4.9); POTASSIUM 3.4 mMol/L (3.7-5.1); SODIUM 142 mMol/L (135-145)
[2016-11-17 20:50] LABS: CALCIUM 7.2 mg/dL (8.5-10.5)
[2016-11-18 02:21] LABS: PROTIME 10.6 SECONDS (9.6-11.1)
[2016-11-18 02:31] LABS: ANION GAP 12.2 (10.0-19.0); BLOOD UREA NITROGEN 11 mg/dL (6-24); CALCIUM 6.9 mg/dL (8.5-10.5); CHLORIDE 107 mMol/L (96-110); CO2 24 mMol/L (22-32); ESTIMATED GFR (MDRD EQUATION) > 60; POTASSIUM 3.2 mMol/L (3.7-5.1); SODIUM 140 mMol/L (135-145)
[2016-11-18 02:38] LABS: MAGNESIUM 1.9 mg/dL (1.3-2.6); PHOSPHORUS 2.3 mg/dL (2.5-4.9)
[2016-11-18 05:30] LABS: BICARBONATE 25.4 mmol/L (18.0-23.0); LACTATE 1.6 mEq/L (0.50-1.60); PCO2 41 mmHg (35-45); PO2 111 mmHg (80-90)
[2016-11-18 05:55] LABS: ALBUMIN 2.5 gm/dL (3.5-5.0); ALK PHOS 40 IU/L (33-138); ALT 250 IU/L (12-78); ANION GAP 13.3 (10.0-19.0); AST 155 IU/L (10-40); BLOOD UREA NITROGEN 11 mg/dL (6-24); CHLORIDE 107 mMol/L (96-110); CO2 24 mMol/L (22-32); CREATININE 0.8 mg/dL (0.5-1.1); ESTIMATED GFR (MDRD EQUATION) > 60; POTASSIUM 3.3 mMol/L (3.7-5.1); SODIUM 141 mMol/L (135-145)
[2016-11-18 05:58] LABS: CALCIUM 6.9 mg/dL (8.5-10.5); TOTAL BILIRUBIN 0.3 mg/dL (0.0-1.5); TOTAL PROTEIN 4.9 g/dL (6.0-8.4)
[2016-11-18 06:19] LABS: BASOPHIL # 0.1 K/uL (0.0-0.2); BASOPHIL % 0.4 %; EOSINOPHIL # 0.2 K/uL (0.0-0.5); EOSINOPHIL % 1.2 %; HEMATOCRIT 34.1 % (33.0-46.0); HEMOGLOBIN 11.7 g/dL (11.0-15.0); IMMATURE GRANULOCYTE # 0.1 K/uL (0.0-0.3); IMMATURE GRANULOCYTE % 0.4 %; LYMPHOCYTE # 2.1 K/uL (0.8-4.0); MCH 30.6 pg (27.0-34.0); MCHC 34.3 gm/dL (32.0-36.5); MCV 89.3 fl (83.0-98.0); MONOCYTE # 0.6 K/uL (0.0-1.0); MONOCYTE % 4.3 %; MPV 9.4 fl (9.4-12.4); NEUTROPHIL # (ANC) 10.9 K/uL (1.8-7.8); NEUTROPHIL % 78.7 %; NRBC % 0 /100WBC (0-0.00); RBC 3.82 M/uL (3.50-5.50); RDW-CV 13.7 % (11.9-14.6); WBC 13.9 K/uL (4.0-11.0)
[2016-11-18 06:26] LABS: PLATELET COUNT 186 K/uL (150-450)
[2016-11-18 09:45] LABS: HEMATOCRIT 31.9 % (33.0-46.0); MCH 30.7 pg (27.0-34.0); MCHC 34.5 gm/dL (32.0-36.5); MCV 89.1 fl (83.0-98.0); MPV 9.1 fl (9.4-12.4); RBC 3.58 M/uL (3.50-5.50); RDW-CV 13.6 % (11.9-14.6); WBC 12.7 K/uL (4.0-11.0)
[2016-11-18 09:55] LABS: PROTIME 10.7 SECONDS (9.6-11.1)
[2016-11-18 10:04] LABS: ALBUMIN 2.6 gm/dL (3.5-5.0); ALK PHOS 40 IU/L (33-138); ALT 220 IU/L (12-78); ANION GAP 10.2 (10.0-19.0); AST 133 IU/L (10-40); BLOOD UREA NITROGEN 10 mg/dL (6-24); CHLORIDE 108 mMol/L (96-110); CO2 27 mMol/L (22-32); CREATININE 0.8 mg/dL (0.5-1.1); ESTIMATED GFR (MDRD EQUATION) > 60; POTASSIUM 3.2 mMol/L (3.7-5.1); SODIUM 142 mMol/L (135-145); TOTAL BILIRUBIN 0.3 mg/dL (0.0-1.5)
[2016-11-18 10:05] LABS: CALCIUM 6.5 mg/dL (8.5-10.5); TOTAL PROTEIN 4.9 g/dL (6.0-8.4)
[2016-11-18 10:06] LABS: PHOSPHORUS 2.9 mg/dL (2.5-4.9)
[2016-11-18 16:01] LABS: PROTIME 10.6 SECONDS (9.6-11.1)
[2016-11-18 16:05] LABS: ANION GAP 13.3 (10.0-19.0); BLOOD UREA NITROGEN 6 mg/dL (6-24); CALCIUM 7.6 mg/dL (8.5-10.5); CHLORIDE 110 mMol/L (96-110); CO2 25 mMol/L (22-32); CREATININE 0.7 mg/dL (0.5-1.1); ESTIMATED GFR (MDRD EQUATION) > 60; SODIUM 144 mMol/L (135-145)
[2016-11-18 16:14] LABS: POTASSIUM 4.3 mMol/L (3.7-5.1)
[2016-11-18 16:15] LABS: PHOSPHORUS 2.4 mg/dL (2.5-4.9)
[2016-11-18 20:03] LABS: PROTIME 10.7 SECONDS (9.6-11.1)
[2016-11-18 20:09] LABS: ANION GAP 9.1 (10.0-19.0); BLOOD UREA NITROGEN 7 mg/dL (6-24); CALCIUM 7.3 mg/dL (8.5-10.5); CHLORIDE 113 mMol/L (96-110); CO2 27 mMol/L (22-32); CREATININE 0.8 mg/dL (0.5-1.1); ESTIMATED GFR (MDRD EQUATION) > 60; POTASSIUM 4.1 mMol/L (3.7-5.1); SODIUM 145 mMol/L (135-145)
[2016-11-18 20:10] LABS: MAGNESIUM 1.8 mg/dL (1.3-2.6)
[2016-11-19 05:19] LABS: BICARBONATE 22.8 mmol/L (18.0-23.0); PCO2 36 mmHg (35-45); PO2 82 mmHg (80-90)
[2016-11-19 05:41] LABS: ALBUMIN 2.8 gm/dL (3.5-5.0); ALK PHOS 56 IU/L (33-138); ALT 201 IU/L (12-78); AST 114 IU/L (10-40); BLOOD UREA NITROGEN 5 mg/dL (6-24); CHLORIDE 110 mMol/L (96-110); CO2 21 mMol/L (22-32); CREATININE 0.6 mg/dL (0.5-1.1); ESTIMATED GFR (MDRD EQUATION) > 60; MAGNESIUM 2.1 mg/dL (1.3-2.6); PHOSPHORUS 2.2 mg/dL (2.5-4.9); SODIUM 142 mMol/L (135-145); TOTAL BILIRUBIN 0.3 mg/dL (0.0-1.5)
[2016-11-19 05:42] LABS: BASOPHIL % 0.2 %; HEMATOCRIT 36.8 % (33.0-46.0); HEMOGLOBIN 12.5 g/dL (11.0-15.0); IMMATURE GRANULOCYTE # 0.1 K/uL (0.0-0.3); IMMATURE GRANULOCYTE % 0.8 %; LYMPHOCYTE # 0.9 K/uL (0.8-4.0); LYMPHOCYTE % 6.2 %; MCH 30.3 pg (27.0-34.0); MCV 89.1 fl (83.0-98.0); MONOCYTE # 0.6 K/uL (0.0-1.0); MONOCYTE % 4.3 %; MPV 9.1 fl (9.4-12.4); NEUTROPHIL # (ANC) 12.1 K/uL (1.8-7.8); NEUTROPHIL % 88.5 %; NRBC % 0 /100WBC (0-0.00); PLATELET COUNT 183 K/uL (150-450); RBC 4.13 M/uL (3.50-5.50); RDW-CV 13.9 % (11.9-14.6); WBC 13.6 K/uL (4.0-11.0)
[2016-11-19 05:43] LABS: CALCIUM 7.2 mg/dL (8.5-10.5)
[2016-11-20 04:50] LABS: BICARBONATE 24.6 mmol/L (18.0-23.0); PCO2 38 mmHg (35-45); PO2 81 mmHg (80-90)
[2016-11-20 05:11] LABS: ALBUMIN 2.9 gm/dL (3.5-5.0); ALK PHOS 80 IU/L (33-138); ALT 162 IU/L (12-78); ANION GAP 15.6 (10.0-19.0); AST 105 IU/L (10-40); BLOOD UREA NITROGEN 6 mg/dL (6-24); CALCIUM 8.3 mg/dL (8.5-10.5); CHLORIDE 109 mMol/L (96-110); CO2 22 mMol/L (22-32); CREATININE 0.6 mg/dL (0.5-1.1); ESTIMATED GFR (MDRD EQUATION) > 60; POTASSIUM 3.6 mMol/L (3.7-5.1); SODIUM 143 mMol/L (135-145); TOTAL PROTEIN 7.2 g/dL (6.0-8.4)
[2016-11-20 05:12] LABS: BASOPHIL % 0.2 %; EOSINOPHIL % 0.1 %; HEMATOCRIT 41.4 % (33.0-46.0); HEMOGLOBIN 14.1 g/dL (11.0-15.0); IMMATURE GRANULOCYTE # 0.1 K/uL (0.0-0.3); IMMATURE GRANULOCYTE % 0.7 %; LYMPHOCYTE # 1.2 K/uL (0.8-4.0); LYMPHOCYTE % 7.9 %; MCHC 34.1 gm/dL (32.0-36.5); MCV 88.1 fl (83.0-98.0); MONOCYTE # 0.7 K/uL (0.0-1.0); MPV 8.8 fl (9.4-12.4); NEUTROPHIL # (ANC) 12.5 K/uL (1.8-7.8); NEUTROPHIL % 86.1 %; NRBC % 0 /100WBC (0-0.00); PLATELET COUNT 215 K/uL (150-450); RDW-CV 13.4 % (11.9-14.6); WBC 14.5 K/uL (4.0-11.0)
[2016-11-20 05:18] LABS: TOTAL BILIRUBIN 0.4 mg/dL (0.0-1.5)
[2016-11-20 13:39] LABS: BICARBONATE 24.2 mmol/L (18.0-23.0); PCO2 34 mmHg (35-45)
[2016-11-20 13:42] LABS: PO2 174 mmHg (80-90)
[2016-11-20 14:21] LABS: BICARBONATE 28.1 mmol/L (18.0-23.0); PCO2 64 mmHg (35-45); PO2 307 mmHg (80-90)
[2016-11-20 16:35] LABS: BICARBONATE 25.7 mmol/L (18.0-23.0)
[2016-11-20 16:37] LABS: BASOPHIL % 0.2 %; EOSINOPHIL % 0.2 %; HEMOGLOBIN 11.5 g/dL (11.0-15.0); IMMATURE GRANULOCYTE # 0.1 K/uL (0.0-0.3); IMMATURE GRANULOCYTE % 0.5 %; LYMPHOCYTE # 1.4 K/uL (0.8-4.0); LYMPHOCYTE % 14.6 %; MCH 30.6 pg (27.0-34.0); MCHC 34.7 gm/dL (32.0-36.5); MONOCYTE # 0.6 K/uL (0.0-1.0); MONOCYTE % 6.3 %; MPV 8.8 fl (9.4-12.4); NEUTROPHIL # (ANC) 7.2 K/uL (1.8-7.8); NEUTROPHIL % 78.2 %; NRBC % 0 /100WBC (0-0.00); PLATELET COUNT 229 K/uL (150-450); RBC 3.76 M/uL (3.50-5.50); RDW-CV 13.4 % (11.9-14.6); WBC 9.3 K/uL (4.0-11.0)
[2016-11-20 16:38] LABS: PCO2 37 mmHg (35-45); PO2 104 mmHg (80-90)
[2016-11-20 16:42] LABS: HEMATOCRIT 33.1 % (33.0-46.0)
[2016-11-20 16:43] LABS: INR - (THERAPEUTIC) 1.2 (0.9-1.1); PROTIME 12.7 SECONDS (9.6-11.1)
[2016-11-20 16:54] LABS: BILIRUBIN URINE NEGATIVE (NEGATIVE); BLOOD URINE 10 /UL (NEGATIVE); GLUCOSE URINE 50 mg/dL (NEGATIVE); KETONE URINE NEGATIVE (NEGATIVE); LEUKOCYTES URINE NEGATIVE /UL (NEGATIVE); NITRITE URINE NEGATIVE (NEGATIVE); PROTEIN URINE 15 mg/dL (NEGATIVE); SPEC GRAVITY URINE 1.015 (1.003-1.035); UROBILINOGEN URINE NORMAL (NORMAL)
[2016-11-20 16:57] LABS: ALBUMIN 2.5 gm/dL (3.5-5.0); ALK PHOS 61 IU/L (33-138); ALT 111 IU/L (12-78); ANION GAP 11.7 (10.0-19.0); AST 66 IU/L (10-40); CALCIUM 7.7 mg/dL (8.5-10.5); CHLORIDE 111 mMol/L (96-110); CO2 24 mMol/L (22-32); CREATININE 0.5 mg/dL (0.5-1.1); ESTIMATED GFR (MDRD EQUATION) > 60; MAGNESIUM 2.2 mg/dL (1.3-2.6); PHOSPHORUS 2.1 mg/dL (2.5-4.9); POTASSIUM 3.7 mMol/L (3.7-5.1); SODIUM 143 mMol/L (135-145); TOTAL PROTEIN 6.1 g/dL (6.0-8.4)
[2016-11-20 16:58] LABS: BLOOD UREA NITROGEN 14 mg/dL (6-24); TOTAL BILIRUBIN 0.3 mg/dL (0.0-1.5)
[2016-11-20 17:32] LABS: COLOR URINE YELLOW (YELLOW); TURBIDITY URINE CLEAR (CLEAR)
[2016-11-20 17:37] LABS: BACTERIA URINE NEGATIVE (NEGATIVE); RBC URINE NEGATIVE #/HPF (NEGATIVE); WBC URINE NEGATIVE #/HPF (NEGATIVE); YEAST URINE MODERATE (NEGATIVE)
[2016-11-20 17:40] LABS: BICARBONATE 24.2 mmol/L (18.0-23.0); PCO2 31 mmHg (35-45)
[2016-11-20 17:41] LABS: PO2 193 mmHg (80-90)
[2016-11-20 19:01] LABS: BICARBONATE 24.3 mmol/L (18.0-23.0)
[2016-11-20 19:02] LABS: PCO2 41 mmHg (35-45); PO2 86 mmHg (80-90)
[2016-11-20 22:36] LABS: HEMATOCRIT 34.6 % (33.0-46.0); HEMOGLOBIN 11.7 g/dL (11.0-15.0); MCH 29.9 pg (27.0-34.0); MCHC 33.8 gm/dL (32.0-36.5); MCV 88.5 fl (83.0-98.0); MPV 9.1 fl (9.4-12.4); PLATELET COUNT 200 K/uL (150-450); RBC 3.91 M/uL (3.50-5.50); RDW-CV 13.5 % (11.9-14.6); WBC 10.4 K/uL (4.0-11.0)
[2016-11-20 22:42] LABS: BILIRUBIN URINE NEGATIVE (NEGATIVE); BLOOD URINE 10 /UL (NEGATIVE); COLOR URINE YELLOW (YELLOW); GLUCOSE URINE 1000 mg/dL (NEGATIVE); KETONE URINE 5 mg/dL (NEGATIVE); LEUKOCYTES URINE NEGATIVE /UL (NEGATIVE); NITRITE URINE NEGATIVE (NEGATIVE); PROTEIN URINE 15 mg/dL (NEGATIVE); SPEC GRAVITY URINE 1.015 (1.003-1.035); TURBIDITY URINE 1+ (CLEAR); UROBILINOGEN URINE NORMAL (NORMAL)
[2016-11-20 22:50] LABS: INR - (THERAPEUTIC) 1.3 (0.9-1.1); PROTIME 13.7 SECONDS (9.6-11.1)
[2016-11-20 22:58] LABS: ALBUMIN 2.9 gm/dL (3.5-5.0); ALK PHOS 62 IU/L (33-138); ALT 110 IU/L (12-78); ANION GAP 15.2 (10.0-19.0); AST 50 IU/L (10-40); BLOOD UREA NITROGEN 17 mg/dL (6-24); CALCIUM 7.8 mg/dL (8.5-10.5); CHLORIDE 109 mMol/L (96-110); CO2 21 mMol/L (22-32); CREATININE 0.7 mg/dL (0.5-1.1); ESTIMATED GFR (MDRD EQUATION) > 60; MAGNESIUM 2.2 mg/dL (1.3-2.6); POTASSIUM 3.2 mMol/L (3.7-5.1); SODIUM 142 mMol/L (135-145); TOTAL BILIRUBIN 0.3 mg/dL (0.0-1.5); TOTAL PROTEIN 6.8 g/dL (6.0-8.4)
[2016-11-20 23:03] LABS: PHOSPHORUS 1.8 mg/dL (2.5-4.9)
[2016-11-20 23:08] LABS: BACTERIA URINE NEGATIVE (NEGATIVE); RBC URINE 0-2 #/HPF (NEGATIVE); WBC URINE 0-2 #/HPF (NEGATIVE); YEAST URINE FEW (NEGATIVE)
[2016-11-20 23:40] LABS: ABSOLUTE NEUTROPHIL CT (ANC) 9.9 K/uL (1.8-7.8); BANDED NEUTROPHILS % 10 %; LYMPHOCYTE # 0.5 K/uL (0.8-4.0); LYMPHOCYTE % 5 %; SEGMENTED NEUTROPHIL # 8.8 K/uL (1.8-7.8); SEGMENTED NEUTROPHIL % 85 %
[2016-11-20 23:45] LABS: BICARBONATE 22.7 mmol/L (18.0-23.0); PCO2 43 mmHg (35-45)
[2016-11-20 23:53] LABS: PO2 332 mmHg (80-90)
[2016-11-21 03:18] LABS: BICARBONATE 24.3 mmol/L (18.0-23.0); PCO2 46 mmHg (35-45); PO2 311 mmHg (80-90)
[2016-11-21 04:27] LABS: BILIRUBIN URINE NEGATIVE (NEGATIVE); BLOOD URINE 10 /UL (NEGATIVE); COLOR URINE YELLOW (YELLOW); GLUCOSE URINE 100 mg/dL (NEGATIVE); KETONE URINE NEGATIVE (NEGATIVE); LEUKOCYTES URINE NEGATIVE /UL (NEGATIVE); NITRITE URINE NEGATIVE (NEGATIVE); PROTEIN URINE 30 mg/dL (NEGATIVE); TURBIDITY URINE CLEAR (CLEAR); UROBILINOGEN URINE NORMAL (NORMAL)
[2016-11-21 04:28] LABS: INR - (THERAPEUTIC) 1.3 (0.9-1.1); PROTIME 14.3 SECONDS (9.6-11.1)
[2016-11-21 04:33] LABS: ALBUMIN 2.9 gm/dL (3.5-5.0); ALK PHOS 55 IU/L (33-138); ALT 85 IU/L (12-78); AST 34 IU/L (10-40); BLOOD UREA NITROGEN 19 mg/dL (6-24); CALCIUM 7.5 mg/dL (8.5-10.5); CHLORIDE 111 mMol/L (96-110); CO2 24 mMol/L (22-32); CREATININE 0.6 mg/dL (0.5-1.1); ESTIMATED GFR (MDRD EQUATION) > 60; MAGNESIUM 2.4 mg/dL (1.3-2.6); PHOSPHORUS 2.1 mg/dL (2.5-4.9); POTASSIUM 3.3 mMol/L (3.7-5.1); TOTAL BILIRUBIN 0.3 mg/dL (0.0-1.5); TOTAL PROTEIN 6.4 g/dL (6.0-8.4)
[2016-11-21 04:40] LABS: ANION GAP 14.3 (10.0-19.0); SODIUM 146 mMol/L (135-145)
[2016-11-21 04:43] LABS: HEMATOCRIT 29.5 % (33.0-46.0); HEMOGLOBIN 10.3 g/dL (11.0-15.0); MCH 30.8 pg (27.0-34.0); MCHC 34.9 gm/dL (32.0-36.5); MCV 88.3 fl (83.0-98.0); MPV 9.2 fl (9.4-12.4); PLATELET COUNT 168 K/uL (150-450); RBC 3.34 M/uL (3.50-5.50); RDW-CV 13.5 % (11.9-14.6); WBC 6.9 K/uL (4.0-11.0); WBC URINE 0-2 #/HPF (NEGATIVE)
[2016-11-21 04:44] LABS: BACTERIA URINE NEGATIVE (NEGATIVE); EPITHELIAL URINE 0-2 #/HPF (NEGATIVE); MUCUS URINE 2+ (NEGATIVE); RBC URINE 0-2 #/HPF (NEGATIVE); YEAST URINE FEW (NEGATIVE)
[2016-11-21 06:05] LABS: ABSOLUTE NEUTROPHIL CT (ANC) 6.5 K/uL (1.8-7.8); BANDED NEUTROPHILS % 15 %; LYMPHOCYTE # 0.2 K/uL (0.8-4.0); LYMPHOCYTE % 3 %; MONOCYTE # 0.1 K/uL (0.0-1.0); SEGMENTED NEUTROPHIL # 5.5 K/uL (1.8-7.8); SEGMENTED NEUTROPHIL % 79 %
[2016-11-21 08:35] LABS: BICARBONATE 26.6 mmol/L (18.0-23.0); PCO2 47 mmHg (35-45); PO2 371 mmHg (80-90)
[2016-11-21 08:46] LABS: INR - (THERAPEUTIC) 1.5 (0.9-1.1)
[2016-11-21 08:54] LABS: BILIRUBIN URINE NEGATIVE (NEGATIVE); BLOOD URINE 10 /UL (NEGATIVE); COLOR URINE YELLOW (YELLOW); GLUCOSE URINE 1000 mg/dL (NEGATIVE); KETONE URINE NEGATIVE (NEGATIVE); LEUKOCYTES URINE NEGATIVE /UL (NEGATIVE); NITRITE URINE NEGATIVE (NEGATIVE); PROTEIN URINE 15 mg/dL (NEGATIVE); SPEC GRAVITY URINE 1.015 (1.003-1.035); TURBIDITY URINE CLEAR (CLEAR); UROBILINOGEN URINE NORMAL (NORMAL)
[2016-11-21 09:04] LABS: BACTERIA URINE RARE (NEGATIVE); EPITHELIAL URINE 0-2 #/HPF (NEGATIVE); MUCUS URINE NEGATIVE (NEGATIVE); RBC URINE RARE #/HPF (NEGATIVE); WBC URINE 0-2 #/HPF (NEGATIVE)
[2016-11-21 09:05] LABS: CRYSTALS URINE URIC ACID (NEGATIVE); YEAST URINE FEW (NEGATIVE)
[2016-11-21 10:17] LABS: BICARBONATE 27.6 mmol/L (18.0-23.0); PCO2 50 mmHg (35-45); PO2 124 mmHg (80-90)
[2016-11-21 12:31] LABS: BICARBONATE 27.2 mmol/L (18.0-23.0); PCO2 45 mmHg (35-45); PO2 344 mmHg (80-90)
[2016-11-21 12:32] LABS: HEMATOCRIT 31.7 % (33.0-46.0); HEMOGLOBIN 10.7 g/dL (11.0-15.0); MCH 30.1 pg (27.0-34.0); MCHC 33.8 gm/dL (32.0-36.5); MPV 9.4 fl (9.4-12.4); PLATELET COUNT 148 K/uL (150-450); RBC 3.56 M/uL (3.50-5.50); RDW-CV 13.7 % (11.9-14.6); WBC 10.8 K/uL (4.0-11.0)
[2016-11-21 12:50] LABS: ALBUMIN 3.3 gm/dL (3.5-5.0); ALK PHOS 57 IU/L (33-138); ALT 83 IU/L (12-78); AST 29 IU/L (10-40); BLOOD UREA NITROGEN 16 mg/dL (6-24); CHLORIDE 110 mMol/L (96-110); CO2 26 mMol/L (22-32); CREATININE 0.5 mg/dL (0.5-1.1); ESTIMATED GFR (MDRD EQUATION) > 60; MAGNESIUM 2.3 mg/dL (1.3-2.6); POTASSIUM 3.2 mMol/L (3.7-5.1); TOTAL BILIRUBIN 0.3 mg/dL (0.0-1.5); TOTAL PROTEIN 6.9 g/dL (6.0-8.4)
[2016-11-21 12:54] LABS: ANION GAP 13.2 (10.0-19.0); PHOSPHORUS 1.8 mg/dL (2.5-4.9); SODIUM 146 mMol/L (135-145)
[2016-11-21 12:56] LABS: ABSOLUTE NEUTROPHIL CT (ANC) 9.9 K/uL (1.8-7.8); BANDED NEUTROPHIL # 0.2 K/uL (0.0-0.1); BANDED NEUTROPHILS % 2 %; LYMPHOCYTE # 0.5 K/uL (0.8-4.0); LYMPHOCYTE % 5 %; MONOCYTE # 0.3 K/uL (0.0-1.0); SEGMENTED NEUTROPHIL # 9.7 K/uL (1.8-7.8); SEGMENTED NEUTROPHIL % 90 %
[2016-11-21 16:03] LABS: BICARBONATE 25.7 mmol/L (18.0-23.0); PCO2 37 mmHg (35-45); PO2 381 mmHg (80-90)
[2016-11-21 16:05] LABS: BASOPHIL % 0.1 %; HEMATOCRIT 29.9 % (33.0-46.0); HEMOGLOBIN 10.1 g/dL (11.0-15.0); IMMATURE GRANULOCYTE # 0.1 K/uL (0.0-0.3); IMMATURE GRANULOCYTE % 0.6 %; LYMPHOCYTE # 0.5 K/uL (0.8-4.0); LYMPHOCYTE % 4.4 %; MCHC 33.8 gm/dL (32.0-36.5); MCV 88.7 fl (83.0-98.0); MONOCYTE # 0.5 K/uL (0.0-1.0); MONOCYTE % 3.8 %; MPV 9.3 fl (9.4-12.4); NEUTROPHIL # (ANC) 10.9 K/uL (1.8-7.8); NEUTROPHIL % 91.1 %; NRBC % 0 /100WBC (0-0.00); PLATELET COUNT 149 K/uL (150-450); RBC 3.37 M/uL (3.50-5.50); RDW-CV 13.7 % (11.9-14.6)
[2016-11-21 16:18] LABS: INR - (THERAPEUTIC) 1.8 (0.9-1.1); PROTIME 19.4 SECONDS (9.6-11.1)
[2016-11-21 16:20] LABS: BILIRUBIN URINE NEGATIVE (NEGATIVE); BLOOD URINE 25 /UL (NEGATIVE); GLUCOSE URINE 1000 mg/dL (NEGATIVE); KETONE URINE 150 mg/dL (NEGATIVE); LEUKOCYTES URINE 25 /UL (NEGATIVE); NITRITE URINE NEGATIVE (NEGATIVE); PROTEIN URINE 15 mg/dL (NEGATIVE); UROBILINOGEN URINE NORMAL (NORMAL)
[2016-11-21 16:26] LABS: ALK PHOS 55 IU/L (33-138); ALT 73 IU/L (12-78); ANION GAP 13.2 (10.0-19.0); AST 25 IU/L (10-40); BLOOD UREA NITROGEN 15 mg/dL (6-24); CALCIUM 7.9 mg/dL (8.5-10.5); CHLORIDE 109 mMol/L (96-110); CO2 26 mMol/L (22-32); CREATININE 0.5 mg/dL (0.5-1.1); ESTIMATED GFR (MDRD EQUATION) > 60; MAGNESIUM 2.3 mg/dL (1.3-2.6); POTASSIUM 3.2 mMol/L (3.7-5.1); SODIUM 145 mMol/L (135-145); TOTAL BILIRUBIN 0.3 mg/dL (0.0-1.5); TOTAL PROTEIN 6.5 g/dL (6.0-8.4)
[2016-11-21 16:31] LABS: PHOSPHORUS 1.3 mg/dL (2.5-4.9)
[2016-11-21 16:33] LABS: COLOR URINE YELLOW (YELLOW); TURBIDITY URINE CLEAR (CLEAR)
[2016-11-21 16:35] LABS: BACTERIA URINE NEGATIVE (NEGATIVE); EPITHELIAL URINE 0-2 #/HPF (NEGATIVE); RBC URINE 0-2 #/HPF (NEGATIVE); WBC URINE 0-2 #/HPF (NEGATIVE); YEAST URINE FEW (NEGATIVE)
[2016-11-21 19:49] LABS: BICARBONATE 25.8 mmol/L (18.0-23.0); PCO2 38 mmHg (35-45); PO2 326 mmHg (80-90)
[2016-11-21 20:57] LABS: BICARBONATE 26.5 mmol/L (18.0-23.0); PCO2 39 mmHg (35-45); PO2 110 mmHg (80-90)
[2016-11-21 23:39] LABS: BICARBONATE 26.5 mmol/L (18.0-23.0); BILIRUBIN URINE NEGATIVE (NEGATIVE); BLOOD URINE 10 /UL (NEGATIVE); COLOR URINE YELLOW (YELLOW); GLUCOSE URINE 250 mg/dL (NEGATIVE); KETONE URINE 150 mg/dL (NEGATIVE); LEUKOCYTES URINE NEGATIVE /UL (NEGATIVE); NITRITE URINE NEGATIVE (NEGATIVE); PCO2 40 mmHg (35-45); PO2 328 mmHg (80-90); PROTEIN URINE 30 mg/dL (NEGATIVE); SPEC GRAVITY URINE 1.015 (1.003-1.035); TURBIDITY URINE CLEAR (CLEAR); UROBILINOGEN URINE NORMAL (NORMAL)
[2016-11-21 23:46] LABS: BACTERIA URINE NEGATIVE (NEGATIVE); EPITHELIAL URINE 0-2 #/HPF (NEGATIVE); YEAST URINE FEW (NEGATIVE)
[2016-11-21 23:49] LABS: HEMOGLOBIN 10.5 g/dL (11.0-15.0); MCH 30.4 pg (27.0-34.0); MCHC 33.9 gm/dL (32.0-36.5); MCV 89.9 fl (83.0-98.0); MPV 9.4 fl (9.4-12.4); PLATELET COUNT 155 K/uL (150-450); RBC 3.45 M/uL (3.50-5.50); RDW-CV 14.1 % (11.9-14.6); WBC 10.8 K/uL (4.0-11.0)
[2016-11-21 23:58] LABS: ALK PHOS 55 IU/L (33-138); ALT 73 IU/L (12-78); AST 23 IU/L (10-40); BLOOD UREA NITROGEN 13 mg/dL (6-24); CALCIUM 7.9 mg/dL (8.5-10.5); CHLORIDE 114 mMol/L (96-110); CO2 24 mMol/L (22-32); CREATININE 0.5 mg/dL (0.5-1.1); ESTIMATED GFR (MDRD EQUATION) > 60; MAGNESIUM 2.3 mg/dL (1.3-2.6); POTASSIUM 3.2 mMol/L (3.7-5.1); TOTAL PROTEIN 6.7 g/dL (6.0-8.4)
[2016-11-22] LABS: ANION GAP 15.2 (10.0-19.0); SODIUM 150 mMol/L (135-145); TOTAL BILIRUBIN 0.4 mg/dL (0.0-1.5)
[2016-11-22 00:03] LABS: INR - (THERAPEUTIC) 2.1 (0.9-1.1); PROTIME 23.3 SECONDS (9.6-11.1)
[2016-11-22 00:25] LABS: ABSOLUTE NEUTROPHIL CT (ANC) 10.2 K/uL (1.8-7.8); LYMPHOCYTE # 0.1 K/uL (0.8-4.0); LYMPHOCYTE % 1 %; MONOCYTE # 0.5 K/uL (0.0-1.0); SEGMENTED NEUTROPHIL # 10.2 K/uL (1.8-7.8); SEGMENTED NEUTROPHIL % 94 %
[2016-11-22 03:35] LABS: BICARBONATE 29.9 mmol/L (18.0-23.0); PCO2 43 mmHg (35-45); PO2 296 mmHg (80-90)
[2016-11-22 05:01] LABS: BICARBONATE 30.5 mmol/L (18.0-23.0); PCO2 41 mmHg (35-45)
[2016-11-22 05:02] LABS: BILIRUBIN URINE NEGATIVE (NEGATIVE); BLOOD URINE 10 /UL (NEGATIVE); COLOR URINE YELLOW (YELLOW); GLUCOSE URINE NEGATIVE (NEGATIVE); KETONE URINE NEGATIVE (NEGATIVE); LEUKOCYTES URINE NEGATIVE /UL (NEGATIVE); NITRITE URINE NEGATIVE (NEGATIVE); PROTEIN URINE 30 mg/dL (NEGATIVE); SPEC GRAVITY URINE 1.025 (1.003-1.035); TURBIDITY URINE CLEAR (CLEAR); UROBILINOGEN URINE 1 mg/dL (NORMAL)
[2016-11-22 05:05] LABS: PO2 440 mmHg (80-90)
[2016-11-22 05:09] LABS: BACTERIA URINE NEGATIVE (NEGATIVE); EPITHELIAL URINE 0-2 #/HPF (NEGATIVE); RBC URINE 0-2 #/HPF (NEGATIVE); WBC URINE 0-2 #/HPF (NEGATIVE); YEAST URINE MODERATE (NEGATIVE)
[2016-11-22 05:15] LABS: BASOPHIL % 0.1 %; HEMATOCRIT 29.8 % (33.0-46.0); HEMOGLOBIN 10.2 g/dL (11.0-15.0); IMMATURE GRANULOCYTE # 0.1 K/uL (0.0-0.3); IMMATURE GRANULOCYTE % 1.1 %; LYMPHOCYTE # 0.5 K/uL (0.8-4.0); LYMPHOCYTE % 5.3 %; MCH 30.5 pg (27.0-34.0); MCHC 34.2 gm/dL (32.0-36.5); MCV 89.2 fl (83.0-98.0); MONOCYTE # 0.9 K/uL (0.0-1.0); MONOCYTE % 9.6 %; MPV 9.4 fl (9.4-12.4); NEUTROPHIL # (ANC) 8.2 K/uL (1.8-7.8); NEUTROPHIL % 83.9 %; NRBC % 0 /100WBC (0-0.00); PLATELET COUNT 156 K/uL (150-450); RBC 3.34 M/uL (3.50-5.50); RDW-CV 14.4 % (11.9-14.6); WBC 9.8 K/uL (4.0-11.0)
[2016-11-22 05:22] LABS: INR - (THERAPEUTIC) 2.5 (0.9-1.1); PROTIME 28.1 SECONDS (9.6-11.1); PTT 29 SECONDS (25-32)
[2016-11-22 05:24] LABS: ALBUMIN 3.1 gm/dL (3.5-5.0); ALK PHOS 55 IU/L (33-138); ALT 66 IU/L (12-78); AST 23 IU/L (10-40); BLOOD UREA NITROGEN 15 mg/dL (6-24); CALCIUM 7.8 mg/dL (8.5-10.5); CHLORIDE 113 mMol/L (96-110); CO2 27 mMol/L (22-32); CPK 47 IU/L (21-215); CREATININE 0.6 mg/dL (0.5-1.1); ESTIMATED GFR (MDRD EQUATION) > 60; MAGNESIUM 2.2 mg/dL (1.3-2.6); PHOSPHORUS 3.1 mg/dL (2.5-4.9); POTASSIUM 3.5 mMol/L (3.7-5.1); TOTAL PROTEIN 6.6 g/dL (6.0-8.4)
[2016-11-22 05:25] LABS: ANION GAP 13.5 (10.0-19.0); SODIUM 150 mMol/L (135-145); TOTAL BILIRUBIN 0.3 mg/dL (0.0-1.5)
[2016-11-22 05:59] LABS: BICARBONATE 30.6 mmol/L (18.0-23.0); PCO2 45 mmHg (35-45); PO2 333 mmHg (80-90)
[2016-11-22 08:25] LABS: BICARBONATE 31.6 mmol/L (18.0-23.0); PCO2 51 mmHg (35-45)
[2016-11-22 08:26] LABS: PO2 225 mmHg (80-90)
[2016-11-22 11:42] LABS: BASOPHIL % 0.1 %; HEMATOCRIT 30.9 % (33.0-46.0); HEMOGLOBIN 10.5 g/dL (11.0-15.0); IMMATURE GRANULOCYTE # 0.2 K/uL (0.0-0.3); IMMATURE GRANULOCYTE % 2.2 %; LYMPHOCYTE # 0.5 K/uL (0.8-4.0); LYMPHOCYTE % 5.4 %; MCH 30.3 pg (27.0-34.0); MCV 89.3 fl (83.0-98.0); MONOCYTE # 0.4 K/uL (0.0-1.0); MONOCYTE % 3.9 %; MPV 9.6 fl (9.4-12.4); NEUTROPHIL # (ANC) 8.5 K/uL (1.8-7.8); NEUTROPHIL % 88.4 %; NRBC % 0 /100WBC (0-0.00); PLATELET COUNT 157 K/uL (150-450); RBC 3.46 M/uL (3.50-5.50); RDW-CV 14.6 % (11.9-14.6); WBC 9.7 K/uL (4.0-11.0)
[2016-11-22 11:45] LABS: BILIRUBIN URINE NEGATIVE (NEGATIVE); BLOOD URINE 10 /UL (NEGATIVE); GLUCOSE URINE 250 mg/dL (NEGATIVE); KETONE URINE 50 mg/dL (NEGATIVE); LEUKOCYTES URINE NEGATIVE /UL (NEGATIVE); NITRITE URINE NEGATIVE (NEGATIVE); PROTEIN URINE 15 mg/dL (NEGATIVE); UROBILINOGEN URINE NORMAL (NORMAL)
[2016-11-22 11:51] LABS: COLOR URINE YELLOW (YELLOW); TURBIDITY URINE CLEAR (CLEAR)
[2016-11-22 11:53] LABS: PTT 26 SECONDS (25-32)
[2016-11-22 11:54] LABS: BACTERIA URINE RARE (NEGATIVE); EPITHELIAL URINE NEGATIVE #/HPF (NEGATIVE); RBC URINE 0-2 #/HPF (NEGATIVE); YEAST URINE FEW (NEGATIVE)
[2016-11-22 11:58] LABS: INR - (THERAPEUTIC) 1.4 (0.9-1.1); PROTIME 15.6 SECONDS (9.6-11.1)
[2016-11-22 12:01] LABS: ALBUMIN 3.3 gm/dL (3.5-5.0); ALK PHOS 57 IU/L (33-138); ALT 68 IU/L (12-78); AST 29 IU/L (10-40); BLOOD UREA NITROGEN 16 mg/dL (6-24); CALCIUM 8.2 mg/dL (8.5-10.5); CHLORIDE 111 mMol/L (96-110); CO2 26 mMol/L (22-32); CPK 62 IU/L (21-215); CREATININE 0.5 mg/dL (0.5-1.1); ESTIMATED GFR (MDRD EQUATION) > 60; MAGNESIUM 2.3 mg/dL (1.3-2.6); POTASSIUM 3.3 mMol/L (3.7-5.1); TOTAL PROTEIN 6.9 g/dL (6.0-8.4)
[2016-11-22 12:04] LABS: ANION GAP 15.3 (10.0-19.0); PHOSPHORUS 1.6 mg/dL (2.5-4.9); SODIUM 149 mMol/L (135-145); TOTAL BILIRUBIN 0.5 mg/dL (0.0-1.5)
[2016-11-22 12:14] LABS: BICARBONATE 30.4 mmol/L (18.0-23.0); PCO2 39 mmHg (35-45); PO2 334 mmHg (80-90)
[2016-11-22 13:34] LABS: BICARBONATE 31.2 mmol/L (18.0-23.0); PCO2 41 mmHg (35-45); PO2 166 mmHg (80-90)
[2016-11-22 16:05] LABS: BICARBONATE 29.9 mmol/L (18.0-23.0); PCO2 43 mmHg (35-45)
[2016-11-22 16:06] LABS: PO2 324 mmHg (80-90)
[2016-11-22 17:44] LABS: BASOPHIL % 0.2 %; HEMATOCRIT 32.6 % (33.0-46.0); HEMOGLOBIN 10.8 g/dL (11.0-15.0); IMMATURE GRANULOCYTE # 0.2 K/uL (0.0-0.3); LYMPHOCYTE # 0.6 K/uL (0.8-4.0); LYMPHOCYTE % 4.5 %; MCH 30.2 pg (27.0-34.0); MCHC 33.1 gm/dL (32.0-36.5); MCV 91.1 fl (83.0-98.0); MONOCYTE # 0.6 K/uL (0.0-1.0); MONOCYTE % 5.1 %; MPV 9.2 fl (9.4-12.4); NEUTROPHIL # (ANC) 10.8 K/uL (1.8-7.8); NEUTROPHIL % 88.2 %; NRBC % 0 /100WBC (0-0.00); PLATELET COUNT 171 K/uL (150-450); RBC 3.58 M/uL (3.50-5.50); RDW-CV 14.4 % (11.9-14.6); WBC 12.2 K/uL (4.0-11.0)
[2016-11-22 17:54] LABS: BILIRUBIN URINE NEGATIVE (NEGATIVE); BLOOD URINE NEGATIVE /UL (NEGATIVE); GLUCOSE URINE NEGATIVE (NEGATIVE); KETONE URINE NEGATIVE (NEGATIVE); LEUKOCYTES URINE NEGATIVE /UL (NEGATIVE); NITRITE URINE NEGATIVE (NEGATIVE); PROTEIN URINE NEGATIVE (NEGATIVE); UROBILINOGEN URINE NORMAL (NORMAL)
[2016-11-22 17:54] LABS: PTT 24 SECONDS (25-32)
[2016-11-22 17:57] LABS: COLOR URINE YELLOW (YELLOW); TURBIDITY URINE CLEAR (CLEAR)
[2016-11-22 18:00] LABS: INR - (THERAPEUTIC) 1.1 (0.9-1.1); PROTIME 11.1 SECONDS (9.6-11.1)
[2016-11-22 18:05] LABS: ALBUMIN 3.4 gm/dL (3.5-5.0); ALK PHOS 65 IU/L (33-138); ALT 76 IU/L (12-78); AST 43 IU/L (10-40); BLOOD UREA NITROGEN 18 mg/dL (6-24); CALCIUM 8.4 mg/dL (8.5-10.5); CHLORIDE 112 mMol/L (96-110); CO2 25 mMol/L (22-32); CPK 79 IU/L (21-215); CREATININE 0.7 mg/dL (0.5-1.1); ESTIMATED GFR (MDRD EQUATION) > 60; MAGNESIUM 2.2 mg/dL (1.3-2.6); PHOSPHORUS 3.4 mg/dL (2.5-4.9); POTASSIUM 3.7 mMol/L (3.7-5.1); TOTAL BILIRUBIN 0.5 mg/dL (0.0-1.5); TOTAL PROTEIN 7.4 g/dL (6.0-8.4)
[2016-11-22 18:06] LABS: ANION GAP 15.7 (10.0-19.0); SODIUM 149 mMol/L (135-145)
[2016-11-22 19:45] LABS: BICARBONATE 27.2 mmol/L (18.0-23.0); PCO2 41 mmHg (35-45); PO2 456 mmHg (80-90)
[2016-11-22 23:36] LABS: BILIRUBIN URINE NEGATIVE (NEGATIVE); BLOOD URINE NEGATIVE /UL (NEGATIVE); COLOR URINE YELLOW (YELLOW); GLUCOSE URINE NEGATIVE (NEGATIVE); KETONE URINE 5 mg/dL (NEGATIVE); LEUKOCYTES URINE NEGATIVE /UL (NEGATIVE); NITRITE URINE NEGATIVE (NEGATIVE); PROTEIN URINE 15 mg/dL (NEGATIVE); PROTIME 10.8 SECONDS (9.6-11.1); PTT 23 SECONDS (25-32); TURBIDITY URINE 1+ (CLEAR); UROBILINOGEN URINE NORMAL (NORMAL)
[2016-11-22 23:42] LABS: ALBUMIN 3.3 gm/dL (3.5-5.0); ALK PHOS 63 IU/L (33-138); ALT 73 IU/L (12-78); AST 45 IU/L (10-40); BLOOD UREA NITROGEN 24 mg/dL (6-24); CALCIUM 8.1 mg/dL (8.5-10.5); CHLORIDE 113 mMol/L (96-110); CO2 23 mMol/L (22-32); CPK 75 IU/L (21-215); CREATININE 0.7 mg/dL (0.5-1.1); ESTIMATED GFR (MDRD EQUATION) > 60; MAGNESIUM 2.3 mg/dL (1.3-2.6); PHOSPHORUS 3.3 mg/dL (2.5-4.9); TOTAL BILIRUBIN 0.6 mg/dL (0.0-1.5); TOTAL PROTEIN 7.2 g/dL (6.0-8.4)
[2016-11-22 23:46] LABS: ANION GAP 15.9 (10.0-19.0); POTASSIUM 2.9 mMol/L (3.7-5.1); SODIUM 149 mMol/L (135-145)
[2016-11-22 23:48] LABS: BACTERIA URINE NEGATIVE (NEGATIVE); BASOPHIL % 0.2 %; EPITHELIAL URINE 0-2 #/HPF (NEGATIVE); HEMATOCRIT 33.6 % (33.0-46.0); HEMOGLOBIN 10.7 g/dL (11.0-15.0); IMMATURE GRANULOCYTE # 0.3 K/uL (0.0-0.3); IMMATURE GRANULOCYTE % 2.4 %; LYMPHOCYTE # 0.7 K/uL (0.8-4.0); LYMPHOCYTE % 5.4 %; MCH 29.6 pg (27.0-34.0); MCHC 31.8 gm/dL (32.0-36.5); MCV 93.1 fl (83.0-98.0); MONOCYTE # 0.4 K/uL (0.0-1.0); MONOCYTE % 3.3 %; MPV 9.9 fl (9.4-12.4); NEUTROPHIL # (ANC) 11.4 K/uL (1.8-7.8); NEUTROPHIL % 88.7 %; NRBC % 0 /100WBC (0-0.00); PLATELET COUNT 170 K/uL (150-450); RBC 3.61 M/uL (3.50-5.50); RBC URINE NEGATIVE #/HPF (NEGATIVE); RDW-CV 14.6 % (11.9-14.6); WBC 12.9 K/uL (4.0-11.0); WBC URINE 0-2 #/HPF (NEGATIVE); YEAST URINE FEW (NEGATIVE)
[2016-11-22 23:50] LABS: BICARBONATE 25.4 mmol/L (18.0-23.0); PCO2 44 mmHg (35-45); PO2 462 mmHg (80-90)
[2016-11-23 03:49] LABS: BICARBONATE 23.1 mmol/L (18.0-23.0); PCO2 39 mmHg (35-45); PO2 433 mmHg (80-90)
[2016-11-23 05:50] LABS: BILIRUBIN URINE NEGATIVE (NEGATIVE); BLOOD URINE 150 /UL (NEGATIVE); COLOR URINE STRAW (YELLOW); GLUCOSE URINE NEGATIVE (NEGATIVE); KETONE URINE NEGATIVE (NEGATIVE); LEUKOCYTES URINE NEGATIVE /UL (NEGATIVE); NITRITE URINE NEGATIVE (NEGATIVE); PROTEIN URINE NEGATIVE (NEGATIVE); TURBIDITY URINE CLEAR (CLEAR); UROBILINOGEN URINE NORMAL (NORMAL)
[2016-11-23 06:00] LABS: PROTIME 10.4 SECONDS (9.6-11.1); PTT 22 SECONDS (25-32)
[2016-11-23 06:01] LABS: BACTERIA URINE RARE (NEGATIVE); MUCUS URINE 1+ (NEGATIVE); WBC URINE RARE #/HPF (NEGATIVE); YEAST URINE MODERATE (NEGATIVE)
[2016-11-23 06:04] LABS: ALBUMIN 3.5 gm/dL (3.5-5.0); ALK PHOS 69 IU/L (33-138); ALT 80 IU/L (12-78); AST 64 IU/L (10-40); BLOOD UREA NITROGEN 24 mg/dL (6-24); CALCIUM 8.7 mg/dL (8.5-10.5); CO2 22 mMol/L (22-32); CPK 97 IU/L (21-215); CREATININE 0.8 mg/dL (0.5-1.1); ESTIMATED GFR (MDRD EQUATION) > 60; MAGNESIUM 2.3 mg/dL (1.3-2.6); POTASSIUM 3.2 mMol/L (3.7-5.1); TOTAL PROTEIN 7.6 g/dL (6.0-8.4)
[2016-11-23 06:05] LABS: ANION GAP 14.2 (10.0-19.0); CHLORIDE 118 mMol/L (96-110); PHOSPHORUS 1.3 mg/dL (2.5-4.9); SODIUM 151 mMol/L (135-145); TOTAL BILIRUBIN 0.4 mg/dL (0.0-1.5)
[2016-11-23 06:09] LABS: BASOPHIL % 0.2 %; HEMATOCRIT 34.1 % (33.0-46.0); IMMATURE GRANULOCYTE # 0.6 K/uL (0.0-0.3); IMMATURE GRANULOCYTE % 4.8 %; LYMPHOCYTE # 0.6 K/uL (0.8-4.0); LYMPHOCYTE % 4.6 %; MCH 30.4 pg (27.0-34.0); MCHC 32.3 gm/dL (32.0-36.5); MCV 94.2 fl (83.0-98.0); MONOCYTE # 0.3 K/uL (0.0-1.0); MONOCYTE % 2.2 %; MPV 9.7 fl (9.4-12.4); NEUTROPHIL # (ANC) 11.2 K/uL (1.8-7.8); NEUTROPHIL % 88.2 %; NRBC % 0 /100WBC (0-0.00); PLATELET COUNT 194 K/uL (150-450); RBC 3.62 M/uL (3.50-5.50); RDW-CV 14.8 % (11.9-14.6); WBC 12.7 K/uL (4.0-11.0)
[2016-11-23 08:06] LABS: BICARBONATE 23.7 mmol/L (18.0-23.0); PCO2 42 mmHg (35-45); PO2 378 mmHg (80-90)
[2016-11-23 10:59] LABS: BILIRUBIN URINE NEGATIVE (NEGATIVE); BLOOD URINE NEGATIVE /UL (NEGATIVE); COLOR URINE YELLOW (YELLOW); GLUCOSE URINE NEGATIVE (NEGATIVE); KETONE URINE NEGATIVE (NEGATIVE); LEUKOCYTES URINE NEGATIVE /UL (NEGATIVE); NITRITE URINE NEGATIVE (NEGATIVE); PROTEIN URINE NEGATIVE (NEGATIVE); TURBIDITY URINE CLEAR (CLEAR); UROBILINOGEN URINE NORMAL (NORMAL)
[2016-11-23 11:02] LABS: HEMATOCRIT 31.7 % (33.0-46.0); HEMOGLOBIN 10.3 g/dL (11.0-15.0); MCH 30.2 pg (27.0-34.0); MCHC 32.5 gm/dL (32.0-36.5); MPV 9.9 fl (9.4-12.4); PLATELET COUNT 182 K/uL (150-450); RBC 3.41 M/uL (3.50-5.50); RDW-CV 14.9 % (11.9-14.6); WBC 10.7 K/uL (4.0-11.0)
[2016-11-23 11:14] LABS: PROTIME 10.7 SECONDS (9.6-11.1); PTT 22 SECONDS (25-32)
[2016-11-23 11:23] LABS: ALBUMIN 3.2 gm/dL (3.5-5.0); ALK PHOS 64 IU/L (33-138); ALT 75 IU/L (12-78); AST 59 IU/L (10-40); BLOOD UREA NITROGEN 29 mg/dL (6-24); CALCIUM 8.4 mg/dL (8.5-10.5); CO2 20 mMol/L (22-32); CPK 95 IU/L (21-215); CREATININE 0.8 mg/dL (0.5-1.1); ESTIMATED GFR (MDRD EQUATION) > 60; MAGNESIUM 2.3 mg/dL (1.3-2.6); PHOSPHORUS 4.1 mg/dL (2.5-4.9); TOTAL PROTEIN 7.1 g/dL (6.0-8.4)
[2016-11-23 11:28] LABS: ANION GAP 15.4 (10.0-19.0); CHLORIDE 118 mMol/L (96-110); POTASSIUM 4.4 mMol/L (3.7-5.1); SODIUM 149 mMol/L (135-145); TOTAL BILIRUBIN 0.5 mg/dL (0.0-1.5)
[2016-11-23 11:37] LABS: ABSOLUTE NEUTROPHIL CT (ANC) 9.7 K/uL (1.8-7.8); BANDED NEUTROPHIL # 0.7 K/uL (0.0-0.1); BANDED NEUTROPHILS % 7 %; LYMPHOCYTE # 0.3 K/uL (0.8-4.0); LYMPHOCYTE % 3 %; MONOCYTE # 0.4 K/uL (0.0-1.0); SEGMENTED NEUTROPHIL % 84 %
[2016-11-23 11:59] LABS: BICARBONATE 22.7 mmol/L (18.0-23.0); PCO2 35 mmHg (35-45); PO2 329 mmHg (80-90)
[2016-11-23 17:15] LABS: BICARBONATE 22.2 mmol/L (18.0-23.0); PCO2 36 mmHg (35-45); PO2 420 mmHg (80-90)
[2016-11-23 17:16] LABS: POTASSIUM 3.1 mEq/L (3.7-5.1); SODIUM 150 mEq/L (135-145)
[2016-11-26 15:35] LABS: ALKALINE PHOSPHATASE, S 67 U/L (37 - 98); BONE 17.2 IU/L (12.1-42.7); BONE % 25.6 % (19.1-67.7); LIVER 1 33.1 IU/L (16.2-70.2); LIVER 1 % 49.4 % (27.8-76.3); LIVER 2 16.8 IU/L (0.0-5.8); PLACENTAL NotPresent (())
== END 2016-11-23 16:00 | disposition expired | DRG 987 ==
LOC: GICU 23:50 → GNTU 11-17 00:03 → GICU 11-17 00:03 → GNTU 11-23 15:10
PROVIDERS: Internal Medicine; Internal Medicine Critical Care Medicine; Internal Medicine Pulmonary Disease; ADMIT Hospitalist
DX: T47.6X1A Poisoning by antidiarrheal drugs, accidental (unintentional), initial encounter (principal); J96.01 Acute respiratory failure with hypoxia; I49.01 Ventricular fibrillation; K72.00 Acute and subacute hepatic failure without coma; G93.1 Anoxic brain damage, not elsewhere classified; J69.0 Pneumonitis due to inhalation of food and vomit; I42.9 Cardiomyopathy, unspecified; E83.42 Hypomagnesemia; I46.8 Cardiac arrest due to other underlying condition; R57.9 Shock, unspecified; I47.2 Ventricular tachycardia; N17.9 Acute kidney failure, unspecified; I50.22 Chronic systolic (congestive) heart failure; Z51.5 Encounter for palliative care; R74.0 Nonspecific elevation of levels of transaminase and lactic acid dehydrogenase [LDH]; F15.10 Other stimulant abuse, uncomplicated; F12.10 Cannabis abuse, uncomplicated; F13.10 Sedative, hypnotic or anxiolytic abuse, uncomplicated; I45.81 Long QT syndrome; E87.6 Hypokalemia; E83.51 Hypocalcemia
CPT/HCPCS: C9113; G0480; J0171; J0610; J1120; J1165; J1450; J1940; J1953; J2060; J2250; J2310; J2370; J2543; J2704; J2930; J3475; J3480; J7030; J7040; J7042; J7050; J7060; J7120; P9045; P9047; Q9967

== ENCOUNTER → 2016-11-16 | Outpatient (CLI) | payer SELFPAY | END | disposition disaster alternative care site (69) | LOC: GAIR 22:59 | DX: I46.9 Cardiac arrest, cause unspecified (principal); E83.42 Hypomagnesemia | CPT/HCPCS: A0422; A0431; A0436; J2250 ==